=== PATIENT | female | born 1965 | race Caucasian/White ===

== ENCOUNTER 2017-02-18 20:02 | Inpatient (IN) | payer BC ==
[2017-02-18] MEDS: Ketorolac INJ* 30 MG/ML 1 ML VIAL IV PRN (22:49)
[2017-02-18] MEDS: NS 0.9% 1000 ML* 1,000 ML IV SCH (22:58)
[2017-02-18] MEDS: Piperacillin/Tazobactam VIAL*) 3.375 GM in NS 0.9% 100 ML* 100 ML IVPB SCH (23:04)
[2017-02-19] MEDS: HYDROmorphone INJ* 2 MG/ML CARPUJECT SYRINGE IV PRN ×5 (01:21→20:18)
[2017-02-19 04:57] LABS: Hematocrit 29 % (35-47); Hemoglobin 9.6 g/dl (12.0-16.0); Mean Corpuscular HGB Conc 33 g/dl (31-36); Mean Corpuscular Hemoglobin 27 pg (27-31); Mean Corpuscular Volume 83 fL (80-97); Mean Platelet Volume 7 um3 (7.4-10.4); Red Blood Count 3.49 10^6/ul (4.0-5.4); Red Cell Distribution Width 15 % (10.5-15); White Blood Count 11.3 10^3/ul (3.5-10.8)
[2017-02-19 05:22] LABS: BUN/Creatinine Ratio 11.4 (8-20); C Reactive Protein 234.77 mg/L (< 5.00); Calcium 8.4 mg/dL (8.6-10.3); EGFR African American 114.4 (>60); EGFR Non-African American 88.9 (>60); Potassium 3.5 mmol/L (3.5-5.0)
[2017-02-19] MEDS: Piperacillin/Tazobactam VIAL*) 3.375 GM in NS 0.9% 100 ML* 100 ML IVPB SCH ×3 (06:09→22:20)
[2017-02-19] MEDS: Ketorolac INJ* 30 MG/ML 1 ML VIAL IV PRN ×4 (06:15→23:27)
[2017-02-19] MEDS: NS 0.9% 1000 ML* 1,000 ML IV SCH ×2 (06:53→20:18)
[2017-02-19] MEDS ORDERED: NS 0.9% 1000 ML* 1,000 ML IV ONE (09:20)
[2017-02-19] MEDS ORDERED: fentaNYL* 50 MCG/ML 2 ML VIAL (100 MCG VIAL) ONE (14:57)
[2017-02-19] MEDS ORDERED: LORazepam TAB(*) 1 MG ONE (15:32)
[2017-02-19] MEDS: carBAMazepine TAB(*) 200 MG PO SCH (18:21)
[2017-02-19] MEDS ORDERED: Pantoprazole IV* 40 MG ONE (23:18)
[2017-02-19] MEDS ORDERED: Pantoprazole IV* 40 MG IV ONE (23:45)
--- NOTE | 2017-02-20 00:02 | HP ---
CC: Dr. Chery Sandoval * ADMISSION HISTORY AND PHYSICAL: DATE OF ADMISSION: 02/18/17 ATTENDING SURGEON: Dr. Selvin Betancourt * (DICTATED BY ANGELICA MARQUEZ) CHIEF COMPLAINT: Abdominal pain; appendicitis with abscess. HISTORY OF PRESENT ILLNESS: This is a 51-year-old female, who on Wednesday, , began to experience some generalized abdominal pain. Over the next day or so, the pain localized to the right lower quadrant where it has remained since. She had been seen in the ED and then had an ultrasound of apparently the right upper quadrant on 02/15/17. That study, which I do not have immediately available for review, apparently did show cholelithiasis without evidence of acute cholecystitis. She continued having pain in the right mid abdomen associated with anorexia, but no nausea or vomiting. She denies fever or chills. She was seen in the clinic by Dr. Manning for concern regarding possible gallbladder pain. His exam was concerning more for appendicitis and she was referred for lab work and CT scan of the abdomen and pelvis. Her lab work showed a white blood cell count of 10,500, hemoglobin of 10.9, there was a left shift. Chemistries were significant for potassium of 3.3 and normal liver function tests. CT scan of the abdomen and pelvis was notable for mild dependent atelectasis in the lung bases, cholelithiasis, but without pericholecystic fluid or gallbladder wall edema. There was noted periappendiceal fat stranding with an appendicolith. There was a 3.5-cm diameter loculated fluid collection with foci of air at the tip of the appendix. There was no free intraperitoneal air and no other free fluid or collections noted. There were multiple masses noted in the uterus consistent with fibroids (the patient was made aware). She was seen in the [facility] ER and given IV fluids, morphine, and Unasyn. She was then transferred to [facility]. At present, she is receiving IV fluids and Zosyn. She states that the pain continues in the right lower quadrant, though is manageable with the IV Dilaudid. She was also seen this morning with Dr. Betancourt. PAST MEDICAL HISTORY: Significant for trigeminal neuralgia on the right, obesity, anxiety, depression, and iron deficiency anemia. 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 Douglas. CURRENT MEDICATIONS: 1. Tegretol 200 mg four times a day. 2. Norgestrol with ethinyl estradiol once daily (for regulation of her periods) . 3. Buspirone 5 mg q.p.m. 4. Alprazolam 0.5 mg (the patient recalls the dosage 0.25 mg) b.i.d. DRUG ALLERGIES: None known. FAMILY HISTORY: Negative for anesthesia problems, bleeding, or clotting disorders. SOCIAL HISTORY: The patient is . She denies use of tobacco or alcohol or other recreational drugs. REVIEW OF SYSTEMS: General: As above per HPI. No additional recent acute illnesses. Cardiovascular: No history of hypertension, chest pain, palpitations, or heart murmur. Respiratory: No history of asthma, chronic cough, or shortness of breath. GI: As above per HPI. No additions. : No dysuria, hematuria, or urinary frequency. [employer]: I did not inquire. Endocrine: No diabetes or thyroid dysfunction. Neurological: Right trigeminal neuralgia. PHYSICAL EXAMINATION GENERAL: Well-nourished, obese female in no acute distress. She appears comfortable. VITAL SIGNS: Temperature 99.6, blood pressure 148/68, pulse 101, respirations 18, room air saturation 94%. HEENT: Pupils equal, round, reactive. EOMs intact. No conjunctival pallor or scleral icterus. Oropharynx: Mucous membranes slightly dry. No intraoral lesions. Teeth in good repair. NECK: No lymphadenopathy, thyromegaly, or masses. LUNGS: Clear to auscultation. No rales or wheezes. HEART: Regular rate and rhythm. No murmur noted. ABDOMEN: Bowel sounds present. Obese, soft, tenderness in the right lower quadrant, but without guarding, rebound, or referred tenderness. No palpable masses or organomegaly. BACK: No spinous process or CVA tenderness. GENITALIA: Not done. RECTAL: Not done. EXTREMITIES: No edema. NEUROLOGIC: Grossly intact. SKIN: Warm and dry. No suspicious rashes or lesions. DIAGNOSTIC STUDIES/LAB DATA: Of note, white blood cell count 11,300 with left shift, hemoglobin 9.6, hematocrit 29. Electrolytes: BUN and creatinine are normal. CRP is elevated at 235. CT scan as noted above. IMPRESSION: Appendicitis with abscess. PLAN: Dr. Betancourt discussed with her the plan, which includes percutaneous drainage of the abscess, IV fluids, and IV antibiotics. If she is not improving in a timely fashion, she will require operative intervention ( appendectomy), though at this point, the plan is to defer surgical intervention. ANGELICA MARQUEZ [id number]/[facility] #: [id number] MOUSTAPHA
[2017-02-20] MEDS: HYDROmorphone INJ* 2 MG/ML CARPUJECT SYRINGE IV PRN ×7 (03:54→23:46)
[2017-02-20] MEDS: NS 0.9% 1000 ML* 1,000 ML IV SCH ×3 (04:52→21:35)
[2017-02-20 05:13] LABS: Hematocrit 26 % (35-47); Hemoglobin 8.8 g/dl (12.0-16.0); Mean Corpuscular HGB Conc 33 g/dl (31-36); Mean Corpuscular Hemoglobin 28 pg (27-31); Mean Corpuscular Volume 84 fL (80-97); Mean Platelet Volume 7 um3 (7.4-10.4); Red Blood Count 3.13 10^6/ul (4.0-5.4); Red Cell Distribution Width 16 % (10.5-15); White Blood Count 10.9 10^3/ul (3.5-10.8)
[2017-02-20] MEDS: Piperacillin/Tazobactam VIAL*) 3.375 GM in NS 0.9% 100 ML* 100 ML IVPB SCH ×3 (06:32→22:24)
[2017-02-20] MEDS: Ketorolac INJ* 30 MG/ML 1 ML VIAL IV PRN ×2 (06:39→14:35)
[2017-02-20] MEDS: carBAMazepine TAB(*) 200 MG PO SCH ×4 (08:17→20:01)
--- NOTE | 2017-02-20 09:11 | RAD ---
CPT II Codes: 6100F INDICATION: Small right lower quadrant abscess secondary to appendiceal rupture. COMPARISON: CT abdomen pelvis February 18, 2017 PROCEDURE NOTE AND FINDINGS: The indication, alternatives therapies, benefits and risks of the procedure were explained to the patient and informed consent was obtained. The patient was brought to the CT suite and positioned in the supine position. . A time out was preformed with the technologist and nursing staff. The patient was prepped and draped in the usual sterile fashion. The patient was given intravenous fentanyl and local anesthesia with 1% lidocaine. Using CT guidance 18-gauge needle was inserted into the right lower quadrant collection. Aspiration yielded approximately 1 mL of malodorous, dark brown serous fluid. The sample was sent for laboratory analysis. The small abscess was deemed too small for drainage placement. The patient tolerated the procedure well without incident. The patient was transported back to her inpatient room in stable condition. IMPRESSION: Uncomplicated CT guided right lower quadrant microabscess aspiration as described in the body of the report.
[2017-02-20] MEDS ORDERED: busPIRone TAB* 10 MG PO PRN (09:59)
--- NOTE | 2017-02-20 10:05 | PN ---
Progress Note - Progress Note Date of Service: 02/20/17 SOAP: Subjective: Feels a little better this morning Slightly less pain in RLQ Had BM this morning Objective: TMAX 102.6 Temp Pulse Resp BP Pulse Ox 98.6 F 97 18 140/57 94 02/20/17 07:51 02/20/17 07:51 02/20/17 10:00 02/20/17 07:51 02/20/17 07:51 Intake & Output 02/18/17 02/19/17 02/20/17 02/21/17 06:59 06:59 06:59 06:59 Intake Total 0 2900 730 Output Total 800 1050 Balance -800 1850 730 Weight 190 lb Intake: IV Fluids 470 NS 470 IVPB 2200 NS 1980 ZOSYN 220 Oral 0 700 260 Output: Urine 800 1050 PEX: Comfortable Lungs are clear Abd is soft and slightly distended. Bowel sounds are present but hypoactive Tenderness in the RLQ with some guarding, no mass, no peritoneal irritation. Laboratory Last Values WBC 10.9 10^3/ul (3.5-10.8) H 02/20/17 04:45 RBC 3.13 10^6/ul (4.0-5.4) L 02/20/17 04:45 Hgb 8.8 g/dl (12.0-16.0) L 02/20/17 04:45 Hct 26 % (35-47) L 02/20/17 04:45 MCV 84 fL (80-97) 02/20/17 04:45 MCH 28 pg (27-31) 02/20/17 04:45 MCHC 33 g/dl (31-36) 02/20/17 04:45 RDW 16 % (10.5-15) H 02/20/17 04:45 Plt Count 239 10^3/ul (150-450) 02/20/17 04:45 MPV 7 um3 (7.4-10.4) L 02/20/17 04:45 Neut % (Auto) 83.8 % (38-83) H 02/20/17 04:45 Lymph % (Auto) 8.4 % (25-47) L 02/20/17 04:45 Yell % (Auto) 7.3 % (1-9) 02/20/17 04:45 Eos % (Auto) 0.2 % (0-6) 02/20/17 04:45 Baso % (Auto) 0.3 % (0-2) 02/20/17 04:45 Absolute Neuts (auto) 9.1 10^3/ul (1.5-7.7) H 02/20/17 04:45 Absolute Lymphs (auto) 0.9 10^3/ul (1.0-4.8) L 02/20/17 04:45 Absolute Monos (auto) 0.8 10^3/ul (0-0.8) 02/20/17 04:45 Absolute Eos (auto) 0 10^3/ul (0-0.6) 02/20/17 04:45 Absolute Basos (auto) 0 10^3/ul (0-0.2) 02/20/17 04:45 Absolute Nucleated RBC 0.01 10^3/ul 02/20/17 04:45 Nucleated RBC % 0 02/20/17 04:45 Sodium 135 mmol/L (133-145) 02/19/17 04:33 Potassium 3.5 mmol/L (3.5-5.0) 02/19/17 04:33 Chloride 102 mmol/L (101-111) 02/19/17 04:33 Carbon Dioxide 27 mmol/L (22-32) 02/19/17 04:33 Anion Gap 6 mmol/L (2-11) 02/19/17 04:33 BUN 8 mg/dL (6-24) 02/19/17 04:33 Creatinine 0.70 mg/dL (0.51-0.95) 02/19/17 04:33 Est GFR ( Amer) 114.4 (>60) 02/19/17 04:33 Est GFR (Non-Af Amer) 88.9 (>60) 02/19/17 04:33 BUN/Creatinine Ratio 11.4 (8-20) 02/19/17 04:33 Glucose 101 mg/dL (70-100) H 02/19/17 04:33 Calcium 8.4 mg/dL (8.6-10.3) L 02/19/17 04:33 C-Reactive Protein 278.45 mg/L (< 5.00) H 02/20/17 04:41 Assessment: Appendicitis--delayed presentation with perforation and abscess/phlegmon s/p aspiration of collection Plan: Continue IV Zosyn-no surgical intervention at this time Full liquids Increase activity Follow clinically-if persistent fever, WBC, pain may need repeat CT scan in next 48-72 hours to follow abscess--want to avoid surgical intervention at this time, hopefully will respond to antibiotics with improvement and subsequent interval appendectomy. All discussed with patient this morning.
[2017-02-20] MEDS: Venlafaxine EXT RELEASE CAP* 75 MG PO SCH (11:53)
[2017-02-20] MEDS: ALPRAZolam TAB* 0.5 MG PO SCH ×2 (11:53→20:01)
[2017-02-20] MEDS: Pantoprazole IV* 40 MG IV SCH (20:01)
[2017-02-20] MEDS ORDERED: Ibuprofen TAB* 400 MG ONE (23:46)
[2017-02-21] MEDS: HYDROmorphone INJ* 2 MG/ML CARPUJECT SYRINGE IV PRN ×7 (03:26→19:20)
[2017-02-21] MEDS: Piperacillin/Tazobactam VIAL*) 3.375 GM in NS 0.9% 100 ML* 100 ML IVPB SCH ×3 (05:59→21:59)
[2017-02-21] MEDS: ALPRAZolam TAB* 0.5 MG PO SCH ×2 (08:43→20:09)
[2017-02-21] MEDS: carBAMazepine TAB(*) 200 MG PO SCH ×4 (08:43→20:10)
[2017-02-21] MEDS: Venlafaxine EXT RELEASE CAP* 75 MG PO SCH (08:44)
--- NOTE | 2017-02-21 09:58 | PN ---
Progress Note - Progress Note Date of Service: 02/21/17 SOAP: Subjective: New cough, non productive started 2 nights ago. Pain in abdomen is unchanged. She denies N/V and is voiding well. +flatus. Objective: Vital Signs Temp 98.7 F 02/21/17 02:56 Pulse 91 02/21/17 02:56 Resp 17 02/21/17 08:43 BP 141/68 02/21/17 02:56 Pulse Ox 96 02/21/17 02:56 Gen: moderately ill appearing. Lungs: bilateral coarse BS. Abd: obese; soft; tender in RLQ with Rovsing sx. Intake & Output 02/20/17 02/21/17 02/21/17 18:59 06:59 18:59 Intake Total 2115 100 Output Total 475 150 700 Balance 1640 -50 -700 Intake: IV Fluids 470 NS 470 Oral 1645 100 Output: Urine 475 150 700 Other: Estimated Void Medium # Bowel Movements 0 1 Estimated Stool Amount Medium Assessment: Missed appendicitis with abscess. S/p IR aspiration unsuccessful drain placement. Slight improvement with IV abx. New cough, fever. Possible PNA/flu. Plan: Will check CXR and labs. Hospitalist consult for pulmonary issue. Continue IV abx for appendicitis but may need repeat CT or surgery if not improving further in next day.
[2017-02-21 11:06] LABS: Hematocrit 26 % (35-47); Hemoglobin 8.7 g/dl (12.0-16.0); Mean Corpuscular HGB Conc 34 g/dl (31-36); Mean Corpuscular Hemoglobin 28 pg (27-31); Mean Corpuscular Volume 83 fL (80-97); Mean Platelet Volume 7 um3 (7.4-10.4); Red Blood Count 3.11 10^6/ul (4.0-5.4); Red Cell Distribution Width 15 % (10.5-15); White Blood Count 10.7 10^3/ul (3.5-10.8)
--- NOTE | 2017-02-21 11:09 | RAD ---
INDICATION: Cough and fever in a woman with an appendiceal abscess COMPARISON: None TECHNIQUE: PA and lateral views of the chest were obtained. FINDINGS: The heart and mediastinum are normal in size and contour. On the AP view of the chest there is mild density overlying the bilateral lung bases. On the lateral view of the chest x-ray there is obscuration of the costophrenic angle and posterior diaphragm. Visualized bones are normal for the patient's age. There is no radiographic evidence of free air beneath the diaphragm IMPRESSION: IN THIS CLINICAL SETTING CHEST X-RAY FINDINGS ARE CONSISTENT WITH BIBASILAR ATELECTASIS WITH A SMALL PLEURAL EFFUSION. IT IS UNCLEAR ON THE AP VIEW WHETHER THE PLEURAL EFFUSION IS RIGHT, LEFT OR BILATERAL.
[2017-02-21 11:30] LABS: BUN/Creatinine Ratio 4.6 (8-20); C Reactive Protein 343.58 mg/L (< 5.00); EGFR African American 124.6 (>60); EGFR Non-African American 96.9 (>60)
[2017-02-21] MEDS: NS 0.9% 1000 ML* 1,000 ML IV SCH ×2 (14:27→18:17)
[2017-02-21] MEDS ORDERED: Albuterol 2.5 MG/3 ML NEB.SOL* (0.083%) INH PRN (15:19)
[2017-02-21] MEDS ORDERED: KCL 20 MEQ/100 ML IVPREMIX* 20 MEQ/100 ML BAG IV ONE (15:20)
[2017-02-21] MEDS ORDERED: Potassium Chlor TAB* 20 MEQ TAB.ER PO ONE (15:21)
[2017-02-21] MEDS ORDERED: NS 0.9% 1000 ML* 1,000 ML IV SCH (15:21)
[2017-02-21] MEDS: Ibuprofen TAB* 400 MG PO PRN (20:09)
[2017-02-21] MEDS: Pantoprazole IV* 40 MG IV SCH (20:09)
--- NOTE | 2017-02-21 22:09 | CONS ---
CONSULTATION REPORT: DATE OF CONSULT: 02/21/17 PROVIDER: Cedric Stevens NP. ATTENDING PHYSICIAN: Dr. Michelle (report dictated by Cedric Stevens NP). REFERRING PROVIDER: Dr. Chin, surgical team. CONSULTATION REASON: Shortness of breath, cough, fever. HISTORY OF PRESENT ILLNESS: Ms. Win is a 51-year-old female with past medical history of obesity, anxiety, depression, iron deficiency anemia and trigeminal neuralgia who was admitted on 02/18/17 for abdominal pain, found to have appendicitis with abscess who is currently being treated with IV antibiotics by the surgical team. She is status post IR aspiration with unsuccessful drain placement and is currently on Zosyn for IV antibiotics. Today, Hospital Medicine was asked to evaluate the patient for fevers last evening, development of cough and shortness of breath. The patient underwent a chest x-ray, which is showing "consistent with bibasilar atelectasis with a small pleural effusion." Her last fever was last evening of 101. Her initial leukocytosis on admission was 11.3 and today it is down to 10.7. She has had no further fevers since last evening. The patient was seen and evaluated at the bedside, found to be alert and oriented x3, appearing to be in mild pain, but resting comfortably. She does report that she has been breathing very shallow and has developed some shortness of breath overnight and reports she feels "wheezy." She reports it is painful to get a deep breath due to pain in her abdomen. She denies any further fever or chills today. She is noted to be on 2 L of oxygen and her pulse oximetry was taken at the bedside, which is 91% and she was bumped up to 4 L. Her respirations seem easy at this time. She is noted to have some bilateral wheezing noted with some bibasilar crackles noted and her respirations are easy at this time. The patient denies chest pain. It is noted she has been on fluids since her admission. She denies feeling puffy in her extremities. Denies any cardiac or lung history. The patient denies orthopnea, but she reports a bit difficult to lie flat due to her abdominal pain. Currently, the patient is feeling a little better. PAST MEDICAL HISTORY: As stated in the HPI. PAST SURGICAL HISTORY: [place] tooth extraction, benign right parotid gland tumor. CURRENT MEDICATIONS: 1. Xanax 0.5 mg p.o. b.i.d. 2. BuSpar 10 mg p.o. b.i.d. p.r.n. 3. Tegretol 200 mg p.o. 4 times a day. 4. Dilaudid 0.5 mg IV q.1 hour p.r.n. 5. Motrin 400 mg p.o. q.6 hours p.r.n. 6. Zofran 4 mg IV q.4 hours p.r.n. 7. Protonix 40 mg IV q.24 hours. 8. Zosyn 3.375 g q.8 hours IV. 9. Normal saline 125 mL an hour. 10. Effexor 75 mg p.o. q.a.m. ALLERGIES: No known allergies. FAMILY HISTORY: Reviewed and noncontributory. SOCIAL HISTORY: The patient is and lives at home with her . She denies history of tobacco or alcohol use. No recreational drug use. REVIEW OF SYSTEMS: A 14-point review of systems was performed. All the pertinent positives and negatives are mentioned in the history of present illness. Otherwise, negative. PHYSICAL EXAMINATION: Vital Signs: Temperature 97.6, heart rate 98, respirations 18. Pulse oximetry 92% on 2 L; on 4 L she is 95%. Blood pressure 143/72. General Appearance: A 51-year-old female alert and oriented x3, appears mildly ill, in mild pain and distress, but she appears comfortable at this time. She is appropriate to examination, very pleasant, cooperative. HEENT: Head is normocephalic, atraumatic. Pupils are equal and reactive to light. Oropharynx is clear. Moist mucous membranes. Neck: Supple. Cardiac: S1 and S2. Regular rate and rhythm. No murmur, rub, or gallop appreciated. No lower extremity edema noted. No JVD noted. Lungs: No accessory muscle use. Some small crackles noted in bibasilar area, otherwise good aeration. Abdomen: Obese, soft, tenderness with mild guarding to the right lower quadrant. Extremities: No clubbing, cyanosis, or edema. Warm and well perfused. Neuro: Alert and oriented. No focal deficits noted. ASSESSMENT AND PLAN: Ms. Win is a 51-year-old female who presented to the emergency department on 02/18/17 with abdominal pain, found to have appendicitis with abscess, currently being treated with IV antibiotics by the surgical team. Hospital Medicine was asked to consult regarding redevelopment of her fever last evening and complaint of cough and shortness of breath. 1. Cough, shortness of breath, hypoxia. As stated above, her chest x-ray is showing bibasilar atelectasis with possible pleural effusion. It is possible she has a pneumonia and she is being covered with broad spectrum antibiotics. However, this could very well likely just be atelectasis. She does report she is shallow breathing due to her abdominal pain. For the last couple of hours, she has been using the incentive spirometer and she was recommended to do this at least 10 times an hour as well as frequent ambulation. She reports she has been ambulating a little bit; however, today has mostly been staying in bed. She was encouraged to be more active if possible. It is noted she now is hypoxic and is requiring 4 L to keep her O2 sat at 94%. Her breathing appears easy at this time. We will continue to have nurses monitor closely. Encouraged her to mobilize herself. She did have blood cultures on 02/20/17, which are still pending at this time. I plan for albuterol nebulizers p.r.n. due to slight wheezing. It is noted that her CRP is 343; however, she presented with a CRP of 234, most likely this is secondary to her abscess. 2. Appendicitis with abscess. Disposition per surgical team. She is currently receiving Zosyn and is being monitored closely. If she has any changes, she will be taken to the OR. Pain management. Bowel regimen. 3. Hypokalemia. We will replace the patient's potassium. Recheck BMP in the morning as well as the magnesium level. 4. Depression and anxiety. Continue home medications. 5. DVT prophylaxis. SCDs. 6. Code status, full code. Her is her healthcare proxy. TIME SPENT: Approximately 60 minutes was spent on this consultation. Hospital Medicine will continue to follow along. Thank you very much for asking us to consult. CEDRIC STEVENS, LILLIE [id number]/[facility] #: [id number] MOUSTAPHA
[2017-02-22] MEDS: HYDROmorphone INJ* 2 MG/ML CARPUJECT SYRINGE IV PRN ×5 (01:41→19:50)
[2017-02-22] MEDS: Ibuprofen TAB* 400 MG PO PRN ×2 (05:36→11:32)
[2017-02-22] MEDS: Piperacillin/Tazobactam VIAL*) 3.375 GM in NS 0.9% 100 ML* 100 ML IVPB SCH ×3 (05:37→23:45)
[2017-02-22 08:29] LABS: Hematocrit 25 % (35-47); Hemoglobin 8.1 g/dl (12.0-16.0); Mean Corpuscular HGB Conc 33 g/dl (31-36); Mean Corpuscular Hemoglobin 28 pg (27-31); Mean Corpuscular Volume 84 fL (80-97); Mean Platelet Volume 8 um3 (7.4-10.4); Red Blood Count 2.95 10^6/ul (4.0-5.4); Red Cell Distribution Width 15 % (10.5-15); White Blood Count 9.6 10^3/ul (3.5-10.8)
[2017-02-22 08:47] LABS: BUN/Creatinine Ratio 3.7 (8-20); C Reactive Protein 323.77 mg/L (< 5.00); Calcium 8.7 mg/dL (8.6-10.3); EGFR African American 154.3 (>60); Magnesium 1.8 mg/dL (1.9-2.7); Potassium 3.1 mmol/L (3.5-5.0)
[2017-02-22] MEDS: ALPRAZolam TAB* 0.5 MG PO SCH ×2 (09:07→22:13)
[2017-02-22] MEDS: carBAMazepine TAB(*) 200 MG PO SCH ×2 (09:07→22:13)
[2017-02-22] MEDS: Venlafaxine EXT RELEASE CAP* 75 MG PO SCH (09:07)
[2017-02-22] MEDS ORDERED: Magnesium Sulfate 2 GM IV* 2 GM/50 ML BAG IVPB ONE (09:21)
[2017-02-22] MEDS ORDERED: Potassium Chlor TAB* 20 MEQ TAB.ER PO ONE (09:30)
[2017-02-22] MEDS ORDERED: KCL 20 MEQ/100 ML IVPREMIX* 20 MEQ/100 ML BAG IV ONE (09:30)
[2017-02-22] MEDS ORDERED: carBAMazepine TAB(*) 200 MG PO ONE (10:00)
[2017-02-22] MEDS ORDERED: Potassium Chloride LIQUID* 20 MEQ PACKET PO ONE (10:00)
[2017-02-22] MEDS: NS 0.9% 1000 ML* 1,000 ML IV SCH (11:07)
--- NOTE | 2017-02-22 12:11 | PN ---
Subjective Date of Service: 02/22/17 Interval History: Patient seen and examined at bedside. Denies fever, chills, chest discomfort, N/ V/D. Pt states that pain is controlled. Reports continued shortness of breath with rest and ambulation, feels it is improved today compared to yesterday. Also reports intermittent cough and wheezing, she has been coughing and deep breathing and using IS. Pt has been weaned off O2. Tolerating a full liquid diet. Family History: Unchanged from Admission Social History: Unchanged from Admission Past Medical History: Unchanged from Admission Objective Active Medications: Albuterol (Ventolin 2.5 Mg/3 Ml Neb.[place]*) 2.5 mg INH Q4H PRN Reason: SOB/ WHEEZING Alprazolam (Xanax Tab*) 0.5 mg PO BID STANISLAV Buspirone HCl (Buspar Tab*) 10 mg PO BID PRN Reason: ANXIETY Carbamazepine (Tegretol Tab(*)) 400 mg PO BID STANISLAV Hydromorphone HCl (Dilaudid Inj*) 0.5 mg IV Q1H PRN Reason: Pain - severe Piperacillin Sod/Tazobactam (Sod 3.375 gm/ Sodium Chloride) 100 mls @ 25 mls/ hr IVPB Q8H [facility] Sodium Chloride (Ns 0.9% 1000 Ml*) 1,000 mls @ 0 mls/hr IV PER RATE STANISLAV Ibuprofen (Motrin Tab*) 400 mg PO Q6H PRN Reason: PAIN/TEMPERATURE Ondansetron HCl (Zofran Inj*) 4 mg IV Q4H PRN Reason: NAUSEA/VOMITING Pantoprazole Sodium (Protonix Iv*) 40 mg IV Q24H STANISLAV Venlafaxine HCl (Effexor Xr Cap*) 75 mg PO QAM [facility] Vital Signs 02/21/17 02/21/17 02/21/17 12:58 13:55 15:25 Temperature 99.8 F Pulse Rate 102 Respiratory 16 19 20 Rate Blood Pressure 164/73 (mmHg) O2 Sat by Pulse 96 Oximetry 02/21/17 02/21/17 02/21/17 19:40 20:09 20:16 Temperature 99.2 F Pulse Rate 101 Respiratory 18 15 15 Rate Blood Pressure 137/66 (mmHg) O2 Sat by Pulse 97 Oximetry 02/21/17 02/21/17 02/22/17 21:43 23:28 01:41 Temperature 97.7 F Pulse Rate 85 Respiratory 16 16 16 Rate Blood Pressure 153/83 (mmHg) O2 Sat by Pulse 99 Oximetry 02/22/17 02/22/17 02/22/17 02:49 03:23 05:36 Temperature 98.4 F Pulse Rate 88 Respiratory 17 16 16 Rate Blood Pressure 145/76 (mmHg) O2 Sat by Pulse 99 Oximetry 02/22/17 02/22/17 02/22/17 07:32 07:57 08:22 Temperature 97.9 F Pulse Rate 85 Respiratory 18 16 16 Rate Blood Pressure 129/69 (mmHg) O2 Sat by Pulse 100 93 Oximetry 02/22/17 11:44 Temperature 98.0 F Pulse Rate 92 Respiratory 18 Rate Blood Pressure 133/73 (mmHg) O2 Sat by Pulse 97 Oximetry Oxygen Devices in Use Now: None Appearance: NAD, laying in bed Ears/Nose/Mouth/Throat: Mucous Membranes Moist Respiratory: Symmetrical Chest Expansion and Respiratory Effort, Clear to Auscultation Cardiovascular: NL Sounds; No Murmurs; No JVD, RRR Abdominal: NL Sounds; No Tenderness; No Distention Extremities: No Edema Skin: No Rash or Ulcers Neurological: Alert and Oriented x 3, NL Muscle Strength and Tone Lines/Tubes/Other Access: Clean, Dry and Intact Peripheral IV - site benign Nutrition: Taking PO's Result Diagrams: 02/22/17 07:16 02/22/17 07:16 Microbiology and Other Data: Microbiology 02/19/17 16:20 Gram Stain - Final Body Fluid - Abscess Body Fluid Culture - Preliminary Escherichia Coli Bacteroides Fragilis Enterococcus Avium Skin and Soft Tissue MRSA/MSSA (PCR - Final Mrsa Negative S.aureus Negative 02/21/17 00:02 Aerobic Blood Culture - Preliminary Blood Venous No Growth Day 1 Anaerobic Blood Culture - Preliminary No Growth Day 1 02/20/17 23:20 Aerobic Blood Culture - Preliminary Blood Venous No Growth Day 1 Anaerobic Blood Culture - Preliminary No Growth Day 1 Assess/Plan/Problems-Billing Assessment: Ms. Win is a 51 yo female with PMH significant for trigeminal neuralgia, anxiety, depression, obesity and ANDREZ who presented to the emergency room with abdominal pain and was found to have appendicitis with abscess, currently being treated with IV ABX by the surgical team. Hospitalists where asked to consult regarding redevelopment of fevers, with shortness of breath and cough. - Patient Problems (1) Appendicitis Code(s): K37 - UNSPECIFIED APPENDICITIS SNOMED Code(s): 55020373 Comment: - S/P CT guided abscess drainage 02/19 - Management per surgical team - Continue Zosyn, pain management and bowel regimen (2) Atelectasis, bilateral Code(s): J98.11 - ATELECTASIS SNOMED Code(s): 62416420 Comment: - with cough - Shortness of breath improved and hypoxia resolved - Chest xray shows bilateral atelectasis with possible pleural effusion - Continue IS and frequent ambulation - Continue albuterol nebulizers PRN for wheezing (3) Electrolyte abnormality Code(s): E87.8 - OTH DISORDERS OF ELECTROLYTE AND FLUID BALANCE, NEC SNOMED Code(s): 038495048 Comment: - Hypokalemia - Give replacement today and recheck labs in the AM - Hypomagnesemia - Give replacement today and recheck labs in the AM (4) Anxiety and depression Code(s): F41.8 - OTHER SPECIFIED ANXIETY DISORDERS SNOMED Code(s): 403524240 Comment: - Continue Buspar, Effexor, and Xanax PRN (5) Trigeminal neuralgia Code(s): G50.0 - TRIGEMINAL NEURALGIA SNOMED Code(s): 99089815 Comment: - Continue Tegretol (6) DVT prophylaxis Code(s): TCX9340 - SNOMED Code(s): 706564549 Comment: - SCDs (7) Full code status Code(s): Z78.9 - OTHER SPECIFIED HEALTH STATUS SNOMED Code(s): 818382586 Status and Disposition: Inpatient. Disposition per general surgery. Thank you for this consultation.
[2017-02-22] MEDS ORDERED: Acetaminophen TAB* 325 MG PO PRN (15:51)
[2017-02-22] MEDS ORDERED: HYDROcodone/ACETAMIN 5-325 MG* 1 TAB PO PRN (15:52)
--- NOTE | 2017-02-22 15:54 | PN ---
Progress Note - Progress Note Date of Service: 02/22/17 Note: Surgery Progress: (completion of earlier entry; patient seen ~ 1700) S: HD/Zosyn Day #4. Feeling better. Still some pain (using Dilaudid). Still some RAVI. Abdoulaye ful liqs. Not much appetite for more yet. Had BM this a.m.; passing flatus as well. Ambulating. Hospitalist note appreciated. O: Vital Signs - 8 hr 02/22/17 02/22/17 02/22/17 07:57 08:22 09:07 Temperature 97.9 F Pulse Rate 85 Respiratory 16 16 16 Rate Blood Pressure 129/69 (mmHg) O2 Sat by Pulse 100 93 Oximetry 02/22/17 02/22/17 02/22/17 09:48 11:33 11:44 Temperature 98.0 F Pulse Rate 92 Respiratory 18 18 18 Rate Blood Pressure 133/73 (mmHg) O2 Sat by Pulse 97 Oximetry 02/22/17 15:25 Temperature 98.9 F Pulse Rate 98 Respiratory 18 Rate Blood Pressure 145/77 (mmHg) O2 Sat by Pulse 91 Oximetry Intake and Output Last 24 Hours 02/20/17 02/21/17 02/22/17 02/23/17 06:59 06:59 06:59 06:59 Intake Total 2900 2215 2184 625 Output Total 2136 447 1888 200 Balance 1850 1590 -641 425 Intake: IV Fluids 470 1094 265 NS 470 984 ZOSYN 110 105 magnesium 55 potassium 105 IVPB 2200 NS 1980 ZOSYN 220 Oral 700 1745 1090 360 Output: Urine 6215 980 0504 200 Other: Estimated Void Medium # Bowel Movements 0 1 Estimated Stool Amount Medium PE: Gen: NAD; appears comfortable, sitting up in chair Heart: reg Lungs: upper styles clear; moderate bibasilar crackles Abd: mild distension; +BS; soft; min tenderness to palp; no peritoneal signs Labs: Laboratory Tests 02/19/17 02/21/17 02/22/17 04:33 10:58 07:16 WBC 9.6 Hgb 8.1 L Neut % (Auto) 85.3 H Potassium 3.0 L Magnesium C-Reactive Protein 234.77 H 343.58 H 02/22/17 07:16 WBC Hgb Neut % (Auto) Potassium 3.1 L Magnesium 1.8 L C-Reactive Protein 323.77 H C&S (aspirate from abscess): RUN DATE: 02/22/17 [facility] LAB LIVE PAGE 2 1. ESCHERICHIA COLI (continued) M.I.C. RX Levofloxacin <=0.12 S Meropenem <=0.25 S Nitrofurantoin <=16 S Tetracycline <=1 S Pipercillin/Tazobactam <=4 S Trimethoprim/Sulfamethoxazole <=20 S Amoxicillin/Clavulanic Acid <=2 S Aztreonam <=1 S 3. ENTEROCOCCUS AVIUM M.I.C. RX Ampicillin <=2 S Penicillin 0.25 S Ciprofloxacin <=0.5 S Erythromycin 0.5 S Gentamicin High Level S Levofloxacin 2 S Nitrofurantoin 128 R * Quinupristin/Dalfopristin 1 S * Streptomycin High Level S Tetracycline >=16 R Tigecycline <=0.12 S Vancomycin <=0.5 S * Ampicillin/Sulbactam-Deduced S Also, B fragilis (no sens) A: appendicitis w/ abscess, improving clinically Atelectasis w/ poss pleural effusion, improving Hypokalemia and hypomagnesemia P: cont IV abx K+ and Mg+ ordered by hosp w/ repeat 02/23 cont IS, ambulation adv diet when desired consider transition to po abx and d/c home soon; timing of repeat CT abd/ pelvis; will d/w Dr. Betancourt in a.m.
[2017-02-22] MEDS: Ondansetron INJ* 2 MG/ML VIAL IV PRN (18:01)
[2017-02-22] MEDS: HYDROcodone/ACETAMIN 5-325 MG* 1 TAB PO PRN (19:23)
[2017-02-22] MEDS: Pantoprazole IV* 40 MG IV SCH (22:14)
[2017-02-23] MEDS: Ondansetron INJ* 2 MG/ML VIAL IV PRN ×3 (02:40→17:33)
[2017-02-23] MEDS: HYDROmorphone INJ* 2 MG/ML CARPUJECT SYRINGE IV PRN ×5 (02:50→17:35)
[2017-02-23 04:59] LABS: Hematocrit 24 % (35-47); Hemoglobin 8.1 g/dl (12.0-16.0); Mean Corpuscular HGB Conc 34 g/dl (31-36); Mean Corpuscular Hemoglobin 28 pg (27-31); Mean Corpuscular Volume 82 fL (80-97); Mean Platelet Volume 7 um3 (7.4-10.4); Red Blood Count 2.94 10^6/ul (4.0-5.4); Red Cell Distribution Width 15 % (10.5-15); White Blood Count 11.1 10^3/ul (3.5-10.8)
[2017-02-23 05:11] LABS: BUN/Creatinine Ratio 4.9 (8-20); Calcium 8.1 mg/dL (8.6-10.3); EGFR African American 134.1 (>60); EGFR Non-African American 104.2 (>60); Potassium 3.3 mmol/L (3.5-5.0)
[2017-02-23] MEDS: Piperacillin/Tazobactam VIAL*) 3.375 GM in NS 0.9% 100 ML* 100 ML IVPB SCH ×3 (05:59→22:31)
[2017-02-23] MEDS: NS 0.9% 1000 ML* 1,000 ML IV SCH (07:17)
--- NOTE | 2017-02-23 08:22 | PN ---
Subjective Date of Service: 02/23/17 Interval History: Patient seen and examined at bedside. Denies chills, chest discomfort, V/D. Pt states that she is passing gas and small loose stools. Pt reports fever overnight, continued shortness of breath at rest and with exertion, right lower abd pain, bloating. Pt is on week 2 of her menses, she reports heavy menses. Pt is aware of Dr. Fierro and willl consider a consultation outpatient. Pt states that she is coughing and deep breathing and using her IS. Family History: Unchanged from Admission Social History: Unchanged from Admission Past Medical History: Unchanged from Admission Objective Active Medications: Acetaminophen (Tylenol Tab*) 650 mg PO Q4H PRN Reason: mild pain or fever Hydrocodone Bitart/Acetaminophen (Elroy 5-325 Tab*) 1 tab PO Q4H PRN Reason: PAIN - MILD TO MODERATE Hydrocodone Bitart/Acetaminophen (Elroy 5-325 Tab*) 2 tab PO Q4H PRN Reason: PAIN - MODERATE TO SEVERE Albuterol (Ventolin 2.5 Mg/3 Ml Neb.[place]*) 2.5 mg INH Q4H PRN Reason: SOB/ WHEEZING Alprazolam (Xanax Tab*) 0.5 mg PO BID STANISLAV Buspirone HCl (Buspar Tab*) 10 mg PO BID PRN Reason: ANXIETY Carbamazepine (Tegretol Tab(*)) 400 mg PO BID STANISLAV Hydromorphone HCl (Dilaudid Inj*) 0.5 mg IV Q1H PRN Reason: Pain - severe Piperacillin Sod/Tazobactam (Sod 3.375 gm/ Sodium Chloride) 100 mls @ 25 mls/ hr IVPB Q8H STANISLAV Sodium Chloride (Ns 0.9% 1000 Ml*) 1,000 mls @ 0 mls/hr IV PER RATE [facility] Reason : KVO Ibuprofen (Motrin Tab*) 400 mg PO Q6H PRN Reason: PAIN/TEMPERATURE Ondansetron HCl (Zofran Inj*) 4 mg IV Q4H PRN Reason: NAUSEA/VOMITING Pantoprazole Sodium (Protonix Iv*) 40 mg IV Q24H STANISLAV Venlafaxine HCl (Effexor Xr Cap*) 75 mg PO QAM [facility] Vital Signs 02/22/17 02/22/17 02/22/17 08:22 09:07 09:48 Temperature Pulse Rate Respiratory 16 16 18 Rate Blood Pressure (mmHg) O2 Sat by Pulse 93 Oximetry 02/22/17 02/22/17 02/22/17 11:33 11:44 15:25 Temperature 98.0 F 98.9 F Pulse Rate 92 98 Respiratory 18 18 18 Rate Blood Pressure 133/73 145/77 (mmHg) O2 Sat by Pulse 97 91 Oximetry 02/22/17 02/22/17 02/22/17 15:55 17:40 19:18 Temperature 101.1 F Pulse Rate 108 Respiratory 18 16 20 Rate Blood Pressure 151/81 (mmHg) O2 Sat by Pulse 91 Oximetry 02/22/17 02/22/17 02/22/17 20:04 21:34 22:13 Temperature 100.7 F 98.4 F Pulse Rate 98 93 Respiratory 18 16 18 Rate Blood Pressure 157/83 155/83 (mmHg) O2 Sat by Pulse 92 95 Oximetry 02/22/17 02/22/17 02/23/17 23:31 23:49 00:09 Temperature 99.2 F Pulse Rate 95 Respiratory 17 16 16 Rate Blood Pressure 139/65 (mmHg) O2 Sat by Pulse 90 Oximetry 02/23/17 02/23/17 02/23/17 01:33 02:50 03:42 Temperature Pulse Rate 98 98 Respiratory 18 20 17 Rate Blood Pressure 147/83 (mmHg) O2 Sat by Pulse 92 93 Oximetry 02/23/17 02/23/17 02/23/17 03:51 05:17 07:18 Temperature 99.2 F Pulse Rate 94 Respiratory 16 20 16 Rate Blood Pressure 144/73 (mmHg) O2 Sat by Pulse 96 Oximetry Oxygen Devices in Use Now: Nasal Cannula - 2L Appearance: NAD, sitting up in a chair Ears/Nose/Mouth/Throat: Mucous Membranes Moist Respiratory: Symmetrical Chest Expansion and Respiratory Effort, Clear to Auscultation Cardiovascular: NL Sounds; No Murmurs; No JVD, RRR Abdominal: NL Sounds; No Tenderness; No Distention Extremities: No Edema Skin: No Rash or Ulcers Neurological: Alert and Oriented x 3, NL Muscle Strength and Tone Lines/Tubes/Other Access: Clean, Dry and Intact Peripheral IV - site benign Nutrition: Taking PO's Result Diagrams: 02/23/17 04:38 02/23/17 04:37 Microbiology and Other Data: Microbiology 11/17/17 16:20 Gram Stain - Final Body Fluid - Abscess Body Fluid Culture - Preliminary Escherichia Coli Bacteroides Fragilis Enterococcus Avium Skin and Soft Tissue MRSA/MSSA (PCR - Final Mrsa Negative S.aureus Negative 02/21/17 00:02 Aerobic Blood Culture - Preliminary Blood Venous No Growth Day 1 Anaerobic Blood Culture - Preliminary No Growth Day 1 02/20/17 23:20 Aerobic Blood Culture - Preliminary Blood Venous No Growth Day 1 Anaerobic Blood Culture - Preliminary No Growth Day 1 Assess/Plan/Problems-Billing Assessment: Ms. Win is a 51 yo female with PMH significant for trigeminal neuralgia, anxiety, depression, obesity and ANDREZ who presented to the emergency room with abdominal pain and was found to have appendicitis with abscess, currently being treated with IV ABX by the surgical team. Hospitalists where asked to consult regarding redevelopment of fevers, with shortness of breath and cough. - Patient Problems (1) Appendicitis Code(s): K37 - UNSPECIFIED APPENDICITIS SNOMED Code(s): 37891955 Comment: - S/P CT guided abscess drainage 02/19 - Management per surgical team - Will check CT Chest/ABD/Pelvis - Continue Zosyn, pain management and bowel regimen (2) Atelectasis, bilateral Code(s): J98.11 - ATELECTASIS SNOMED Code(s): 71933527 Comment: - with cough - Shortness of breath and hypoxia improving - Chest xray shows bilateral atelectasis with possible pleural effusion - Continue IS and frequent ambulation - Continue albuterol nebulizers PRN for wheezing (3) Electrolyte abnormality Code(s): E87.8 - OTH DISORDERS OF ELECTROLYTE AND FLUID BALANCE, NEC SNOMED Code(s): 852872159 Comment: - Hypokalemia - Give replacement today and recheck labs in the AM - Hypomagnesemia - Resolved (4) Anemia Code(s): D64.9 - ANEMIA, UNSPECIFIED SNOMED Code(s): 487888604 Comment: - Suspect chronic, secondary to acute blood loss d/t menorrhagia - Pt has heavy menses and known fibroids (5) Anxiety and depression Code(s): F41.8 - OTHER SPECIFIED ANXIETY DISORDERS SNOMED Code(s): 749300875 Comment: - Continue Buspar, Effexor, and Xanax PRN (6) Trigeminal neuralgia Code(s): G50.0 - TRIGEMINAL NEURALGIA SNOMED Code(s): 45571125 Comment: - Continue Tegretol (7) DVT prophylaxis Code(s): UTM8883 - SNOMED Code(s): 615880181 Comment: - SCDs (8) Full code status Code(s): Z78.9 - OTHER SPECIFIED HEALTH STATUS SNOMED Code(s): 680740359 Status and Disposition: Inpatient. Disposition per general surgery. Thank you for this consultation.
[2017-02-23] MEDS: Venlafaxine EXT RELEASE CAP* 75 MG PO SCH ×3 (10:09→13:35)
[2017-02-23] MEDS: ALPRAZolam TAB* 0.5 MG PO SCH ×2 (10:09→22:54)
[2017-02-23] MEDS: carBAMazepine TAB(*) 200 MG PO SCH ×2 (10:09→22:58)
[2017-02-23] MEDS: KCL 20 MEQ/100 ML IVPREMIX* 20 MEQ/100 ML BAG IV SCH ×2 (10:33→13:26)
[2017-02-23] MEDS ORDERED: Iohexol 300* (CONTRAST) 10 ML SDV IV ONE (12:26)
--- NOTE | 2017-02-23 13:57 | RAD ---
HISTORY: Pneumonia, follow-up appendiceal abscess COMPARISONS: February 19, 2017, February 18, 2017, chest x-ray dated March 23, 2017 TECHNIQUE: Multiple contiguous axial CT scans were obtained of the chest, abdomen, and pelvis after the administration of intravenous contrast. Coronal and sagittal multiplanar reformations are submitted for review.. Oral contrast was administered. Delayed images were obtained through the abdomen and pelvis. FINDINGS: CHEST NECK AND THYROID: The lower neck and thyroid are unremarkable. CHEST WALL: There is no lower cervical, axillary, or supraclavicular lymphadenopathy by size criteria. HEART AND PERICARDIUM: The heart is unremarkable. AORTA AND PULMONARY VASCULATURE: The aorta and pulmonary vasculature are normal. MEDIASTINUM: There is no mediastinal lymphadenopathy by size criteria. DOUGLAS: There is no hilar lymphadenopathy by size criteria. AIRWAY AND ESOPHAGUS: The airway is unremarkable, without endobronchial filling defect. The esophagus is grossly normal. LUNG PARENCHYMA: There is compressive atelectasis of the lung bases bilaterally. There is a small focus of ground glass opacification within the left upper lobe measuring 1.6 cm in size. PLEURA: There are moderate bilateral pleural effusions. BONES AND SOFT TISSUES: No bone or soft tissue abnormalities are noted. ABDOMEN/PELVIS: LIVER: The liver is enlarged measuring 19.5 cm in long axis. BILE DUCTS: There is no intrahepatic or extrahepatic biliary dilatation. GALLBLADDER: A gallstone is noted. There is no pericholecystic inflammatory change. PANCREAS: The pancreas is normal, without mass or ductal dilatation. SPLEEN: The spleen is at the upper limits of normal in size measuring 13.2 x 5.5 x 10.1 cm. UPPER GI TRACT: Evaluation of the gastrointestinal tract is limited by incomplete gastric distention. The upper GI tract is unremarkable. SMALL BOWEL & MESENTERY: The small bowel is normal in contour, course, and caliber. There is no obstruction or dilatation. COLON: Again noted is a loculated fluid collection within the right lower quadrant, with a gas-fluid level. An appendicolith is noted. This is increased in size compared to February 18, 2017, currently measuring approximately 8.2 x 2.1 x 2.8 cm in size. ADRENALS: Normal bilaterally. KIDNEYS: The kidneys are normal in shape, size, contour, and axis. There is no hydronephrosis or nephrolithiasis. BLADDER: The bladder is smooth in contour. PELVIC ORGANS: The uterus is fibroid. AORTA: The aorta is normal. IVC: Unremarkable LYMPH NODES: There is no lymphadenopathy by size criteria. ABDOMINAL WALL: There is no evidence for abdominal wall hernia. BONES AND SOFT TISSUES: Unremarkable OTHER: None IMPRESSION: 1. THERE HAS BEEN INTERVAL ENLARGEMENT OF A LOCULATED FLUID COLLECTION IN THE RIGHT LOWER QUADRANT CURRENTLY MEASURING UP TO 8.2 CENTERS IN MAXIMUM DIMENSION, CONSISTENT WITH PROGRESSION OF A PERIAPPENDICEAL ABSCESS GIVEN THE CLINICAL HISTORY. 2. MODERATE BILATERAL PLEURAL EFFUSIONS WITH BIBASILAR COMPRESSIVE ATELECTASIS. 3. HEPATOMEGALY. 4. THERE IS A 1.6 CM NONSOLID NODULE OF THE LEFT UPPER LOBE. THE RECOMMENDATIONS FOR FOLLOWUP AND MANAGEMENT OF AN INCIDENTALLY DETECTED NONSOLID PULMONARY NODULE GREATER THAN OR EQUAL TO 6 MM IN SIZE, IN A PATIENT WITHOUT A HISTORY OF MALIGNANCY, INCLUDE FOLLOW-UP CT IN 6-12 MONTHS TO CONFIRM PERSISTENCE, THEN CT EVERY 2 YEARS UNTIL 5 YEARS. NOTES: SIZE = AVERAGE LENGTH AND WIDTH; HIGH RISK IS DEFINED A HISTORY OF SMOKING OR OTHER KNOW RISK FACTORS FOR LUNG CANCER; LOW RISK IS DEFINED MINIMAL OR ABSENT HISTORY OF SMOKING OR OTHER KNOWN RISK FACTORS. Shan, H, JESSICA Rodriguez, CRISTOFER Freire, et al (2017) "Guidelines for Management of Incidental Pulmonary Nodules Detected on CT Images: From the Fleischner Society 2017." Radiology; 284(1): 228-243. doi:10.1148/radiol.[id number]
[2017-02-23] MEDS: Potassium Chloride LIQUID* 20 MEQ PACKET PO SCH (17:48)
[2017-02-23] MEDS ORDERED: Sodium Citrate/Citric Acid* 15 ML UDC PO ONE (18:03)
[2017-02-23] MEDS ORDERED: Levalbuterol 0.63MG/3ML NEB* UNIT OF USE INH ONE (18:03)
[2017-02-23] MEDS ORDERED: Scopolamine 1.5 mg* PATCH TRANSDERM PRN (18:05)
[2017-02-23] MEDS ORDERED: fentaNYL* 50 MCG/ML 2 ML VIAL (100 MCG VIAL) IV PRN (18:05)
[2017-02-23] MEDS ORDERED: oxyCODONE TAB* 5 MG TAB PO PRN (18:05)
[2017-02-23] MEDS ORDERED: HYDROmorphone INJ* 1 MG/ML CARPUJECT SYRINGE IV PRN (18:05)
[2017-02-23] MEDS ORDERED: Rocuronium* 10 MG/ML VIAL ONE (18:12)
[2017-02-23] MEDS ORDERED: Midazolam* 1 MG/ML 2 ML VIAL (2 MG) ONE ×2 (18:12→20:59)
[2017-02-23] MEDS ORDERED: fentaNYL* 50 MCG/ML 2 ML VIAL (100 MCG VIAL) ONE (18:12)
[2017-02-23] MEDS ORDERED: Propofol* 10 MG/ML 20 ML BTL IV PUSH ONE (18:13)
[2017-02-23] MEDS ORDERED: Succinylcholine* 20 MG/ML 10 ML VIAL ONE (18:13)
[2017-02-23] MEDS ORDERED: Lidocaine 2% PF * 5 ML VIAL ONE (18:13)
[2017-02-23] MEDS ORDERED: Levalbuterol 1.25MG/0.5ML NEB ONE (19:17)
[2017-02-23] MEDS ORDERED: Sodium Citrate/Citric Acid* 15 ML UDC ONE (19:17)
[2017-02-23] MEDS ORDERED: Ondansetron INJ* 2 MG/ML VIAL ONE (20:48)
[2017-02-23] MEDS ORDERED: Glycopyrrolate IV* 0.2 MG/ML 1 ML VIAL ONE (20:48)
[2017-02-23] MEDS ORDERED: Neostigmine Methylsulfate* 2 MG/2 ML SYRINGE ONE (20:48)
[2017-02-23] MEDS ORDERED: Cisatracurium* 2 MG/ML MDV 5 ML ONE (20:57)
[2017-02-23] MEDS ORDERED: NS 0.9% 1000 ML* 1,000 ML IV SCH (21:15)
[2017-02-23] MEDS ORDERED: Propofol* 100 ML ONE (21:37)
[2017-02-23] MEDS: Propofol* 1000 MG (10 MG/ML 100 ml) @ Per Protocol (in ICU Pyxis) IV SCH (21:55)
[2017-02-23] MEDS ORDERED: KCL 20 MEQ/100 ML IVPREMIX* 20 MEQ/100 ML BAG IV ONE (22:00)
--- NOTE | 2017-02-23 22:43 | RAD ---
INDICATION: Endotracheal tube placement COMPARISON: Most recent comparison chest x-ray is dated February 21, 2017 TECHNIQUE: Single AP portable view of the chest was obtained. FINDINGS: Image quality is compromised due to the relative inferiority of a portable chest x-ray. There has been interval placement of an endotracheal tube with the tip measuring approximately 3.8 cm above the simran. A gastric tube is seen with the tip terminating below the diaphragm at the expected location of the gastric fundus. There is increasing density obscuring the bilateral lung bases and bilateral hemidiaphragm. IMPRESSION: 1. Interval placement of appropriately positioned endotracheal tube and gastric tube according to radiographic standards in the AP projection. 2. Worsening aeration of the lungs consistent with pleural effusions and/or pulmonary edema.
[2017-02-23] MEDS: Pantoprazole IV* 40 MG IV SCH (22:55)
[2017-02-24] MEDS: fentaNYL* 50 MCG/ML 2 ML VIAL (100 MCG VIAL) IV PRN ×4 (01:09→17:26)
[2017-02-24] MEDS: Propofol* 1000 MG (10 MG/ML 100 ml) @ Per Protocol (in ICU Pyxis) IV SCH ×3 (03:34→08:12)
[2017-02-24 05:57] LABS: Hematocrit 23 % (35-47); Hemoglobin 7.7 g/dl (12.0-16.0); Mean Corpuscular HGB Conc 34 g/dl (31-36); Mean Corpuscular Hemoglobin 28 pg (27-31); Mean Corpuscular Volume 82 fL (80-97); Mean Platelet Volume 7 um3 (7.4-10.4); Red Blood Count 2.76 10^6/ul (4.0-5.4); Red Cell Distribution Width 15 % (10.5-15); White Blood Count 10.6 10^3/ul (3.5-10.8)
[2017-02-24] MEDS: Piperacillin/Tazobactam VIAL*) 3.375 GM in NS 0.9% 100 ML* 100 ML IVPB SCH ×3 (06:02→22:12)
[2017-02-24 06:11] LABS: BUN/Creatinine Ratio 5.4 (8-20); EGFR Non-African American 115.1 (>60); Potassium 3.7 mmol/L (3.5-5.0)
[2017-02-24] MEDS ORDERED: Furosemide IV* 10 MG/ML 2 ML VIAL (20 MG) IV SLOW PU ONE ×2 (08:38→18:00)
[2017-02-24] MEDS ORDERED: NS 0.9% 1000 ML* 1,000 ML IV SCH (08:45)
--- NOTE | 2017-02-24 08:50 | PN ---
Progress Note - Progress Note Date of Service: 02/24/17 SOAP: Subjective: Patient seen with Dr. Betancourt in room. Remains intubated and sedated. No events overnight. Objective: Tmax 100.4 HR upper 90s to 100 Abdomen appears non-distended, incisions clean and dry. Lungs with decreased breath sounds throughout, CXR reviewed from last night I/O reviewed, good urine output Assessment: POD#1, s/p diagnostic laparoscopy, appendectomy, evacuation of intra-abdominal abscess with washout. Plan: Vent per hospitalist/intesivist Decrease IVF One dose of Lasix per Dr. Betancourt order Possible CXR, ABGs and extubate later today. Continue Abx, Dr. Betancourt will get in touch with ID for their recommendations.
--- NOTE | 2017-02-24 09:38 | PN ---
Subjective Date of Service: 02/24/17 Interval History: Patient seen and examined at bedside. Denies fever, chills, shortness of breath , chest discomfort, N/V/D. Pt continues to be vented. Pt shakes head that pain is tolerable. Tele: Sinus rhythm, rate 90-100's. Family History: Unchanged from Admission Social History: Unchanged from Admission Past Medical History: Unchanged from Admission Objective Active Medications: Acetaminophen (Tylenol Tab*) 650 mg PO Q4H PRN Reason: mild pain or fever Hydrocodone Bitart/Acetaminophen ([place] 5-325 Tab*) 1 tab PO Q4H PRN Reason: PAIN - MILD TO MODERATE Hydrocodone Bitart/Acetaminophen ([place] 5-325 Tab*) 2 tab PO Q4H PRN Reason: PAIN - MODERATE TO SEVERE Albuterol (Ventolin 2.5 Mg/3 Ml Neb.[place]*) 2.5 mg INH Q4H PRN Reason: SOB/ WHEEZING Alprazolam (Xanax Tab*) 0.5 mg PO BID [facility] Buspirone HCl (Buspar Tab*) 10 mg PO BID PRN Reason: ANXIETY Carbamazepine (Tegretol Tab(*)) 400 mg PO BID [facility] Fentanyl Citrate (Fentanyl*) 25 mcg IV Q2H PRN Reason: PAIN Hydromorphone HCl (Dilaudid Inj*) 0.5 mg IV Q1H PRN Reason: Pain - severe Piperacillin Sod/Tazobactam (Sod 3.375 gm/ Sodium Chloride) 100 mls @ 25 mls/ hr IVPB Q8H [facility] Propofol (Diprivan*) 100 mls @ 2.585 mls/hr IV .(Initial Rate) STANISLAV; 5 MCG/KG/ MIN Sodium Chloride (Ns 0.9% 1000 Ml*) 1,000 mls @ 60 mls/hr IV .PER RATE [facility] Ibuprofen (Motrin Tab*) 400 mg PO Q6H PRN Reason: PAIN/TEMPERATURE Ondansetron HCl (Zofran Inj*) 4 mg IV Q4H PRN Reason: NAUSEA/VOMITING Pantoprazole Sodium (Protonix Iv*) 40 mg IV Q24H [facility] Pharmacy Profile Note (Scopolamine Patch Remove*) 1 note PATCH OFF Q72H ONE Stop: 02/26/17 18:06 Venlafaxine HCl (Effexor Xr Cap*) 75 mg PO QAM [facility] Vital Signs 02/23/17 02/23/17 02/23/17 10:09 10:42 11:20 Temperature 98.3 F Pulse Rate 99 Respiratory 18 18 16 Rate Blood Pressure 156/80 (mmHg) O2 Sat by Pulse 98 Oximetry 02/23/17 02/23/17 02/23/17 13:43 15:40 17:14 Temperature 100.4 F 100.9 F Pulse Rate 80 104 105 Respiratory 16 18 20 Rate Blood Pressure 155/66 (mmHg) O2 Sat by Pulse 91 92 87 Oximetry 02/23/17 02/23/17 02/23/17 17:35 17:38 21:22 Temperature Pulse Rate 93 Respiratory 20 18 18 Rate Blood Pressure 140/85 (mmHg) O2 Sat by Pulse 99 Oximetry 02/23/17 02/23/17 02/23/17 21:31 21:51 22:00 Temperature Pulse Rate 96 99 101 Respiratory Rate Blood Pressure 155/88 160/90 173/99 (mmHg) O2 Sat by Pulse 100 100 100 Oximetry 02/23/17 02/23/17 02/23/17 22:15 22:30 22:45 Temperature 98.5 F Pulse Rate 99 95 92 Respiratory 20 20 Rate Blood Pressure 149/82 145/79 148/80 (mmHg) O2 Sat by Pulse 100 100 100 Oximetry 02/23/17 02/23/17 02/23/17 22:54 23:00 23:15 Temperature Pulse Rate 95 95 Respiratory 19 19 Rate Blood Pressure 145/84 143/87 (mmHg) O2 Sat by Pulse 100 100 Oximetry 02/23/17 02/23/17 02/23/17 23:30 23:34 23:45 Temperature 99.4 F 98.6 F Pulse Rate 93 90 Respiratory Rate Blood Pressure 139/76 150/85 (mmHg) O2 Sat by Pulse 100 100 Oximetry 02/23/17 02/24/17 02/24/17 23:56 00:00 00:15 Temperature 99.1 F 99.1 F 98.8 F Pulse Rate 94 95 96 Respiratory 19 Rate Blood Pressure 142/81 134/78 (mmHg) O2 Sat by Pulse 99 98 99 Oximetry 02/24/17 02/24/17 02/24/17 00:30 00:45 01:00 Temperature 98.6 F 98.4 F 98.4 F Pulse Rate 97 97 92 Respiratory 18 Rate Blood Pressure 134/83 141/72 141/79 (mmHg) O2 Sat by Pulse 99 98 99 Oximetry 02/24/17 02/24/17 02/24/17 01:09 01:15 01:30 Temperature 98.6 F 98.8 F Pulse Rate 93 94 Respiratory 17 Rate Blood Pressure 134/83 135/72 (mmHg) O2 Sat by Pulse 99 98 Oximetry 02/24/17 02/24/17 02/24/17 01:45 02:00 02:15 Temperature 98.8 F 98.8 F 98.8 F Pulse Rate 98 95 98 Respiratory 18 Rate Blood Pressure 133/71 130/71 134/69 (mmHg) O2 Sat by Pulse 98 98 98 Oximetry 02/24/17 02/24/17 02/24/17 02:30 02:45 03:00 Temperature 98.6 F 98.6 F 98.6 F Pulse Rate 95 94 98 Respiratory 17 Rate Blood Pressure 119/67 127/65 130/69 (mmHg) O2 Sat by Pulse 98 98 98 Oximetry 02/24/17 02/24/17 02/24/17 03:15 03:30 03:44 Temperature 98.6 F 98.8 F Pulse Rate 92 92 Respiratory Rate Blood Pressure 129/76 135/78 (mmHg) O2 Sat by Pulse 99 98 96 Oximetry 02/24/17 02/24/17 02/24/17 03:45 04:00 04:15 Temperature 98.8 F 98.8 F 99.0 F Pulse Rate 95 95 94 Respiratory Rate Blood Pressure 137/72 130/74 130/73 (mmHg) O2 Sat by Pulse 95 95 96 Oximetry 02/24/17 02/24/17 02/24/17 04:26 04:30 04:45 Temperature 98.6 F 99.0 F 99.1 F Pulse Rate 94 94 Respiratory 18 Rate Blood Pressure 134/77 139/73 (mmHg) O2 Sat by Pulse 96 95 Oximetry 02/24/17 02/24/17 02/24/17 05:00 05:15 05:30 Temperature 99.3 F 99.3 F 99.3 F Pulse Rate 94 96 97 Respiratory 17 Rate Blood Pressure 126/75 136/73 131/73 (mmHg) O2 Sat by Pulse 95 95 95 Oximetry 02/24/17 02/24/17 02/24/17 05:45 06:00 06:06 Temperature 99.5 F 99.7 F Pulse Rate 94 92 Respiratory 18 Rate Blood Pressure 139/84 139/80 (mmHg) O2 Sat by Pulse 96 96 Oximetry 02/24/17 02/24/17 02/24/17 06:15 06:30 06:45 Temperature 99.9 F 99.9 F 99.9 F Pulse Rate 91 96 97 Respiratory Rate Blood Pressure 144/83 137/74 133/71 (mmHg) O2 Sat by Pulse 96 95 95 Oximetry 02/24/17 02/24/17 02/24/17 07:00 07:15 07:30 Temperature 99.9 F 100.0 F 100.2 F Pulse Rate 93 96 94 Respiratory 19 Rate Blood Pressure 137/80 140/85 129/86 (mmHg) O2 Sat by Pulse 95 95 95 Oximetry 02/24/17 02/24/17 02/24/17 07:45 07:55 08:00 Temperature 100.2 F 100.4 F Pulse Rate 97 97 100 Respiratory 18 19 Rate Blood Pressure 138/73 153/90 (mmHg) O2 Sat by Pulse 94 94 96 Oximetry 02/24/17 02/24/17 08:15 09:00 Temperature 100.2 F Pulse Rate 100 Respiratory 18 Rate Blood Pressure 137/75 (mmHg) O2 Sat by Pulse 94 Oximetry Oxygen Devices in Use Now: Endotracheal Tube, Mechanical Ventilator Appearance: NAD, laying in bed Ears/Nose/Mouth/Throat: Mucous Membranes Moist Respiratory: Symmetrical Chest Expansion and Respiratory Effort, Clear to Auscultation Cardiovascular: NL Sounds; No Murmurs; No JVD, RRR Abdominal: NL Sounds; No Tenderness; No Distention Extremities: No Edema Skin: No Rash or Ulcers, - - Dressing to ABD clean, dry and intact. Drain in place to ABD Neurological: Alert and Oriented x 3, NL Muscle Strength and Tone Lines/Tubes/Other Access: Clean, Dry and Intact Peripheral IV - site benign Nutrition: Taking PO's Result Diagrams: 02/24/17 05:40 02/24/17 05:40 Microbiology and Other Data: Microbiology 02/19/17 16:20 Gram Stain - Final Body Fluid - Abscess Body Fluid Culture - Preliminary Escherichia Coli Bacteroides Fragilis Enterococcus Avium Skin and Soft Tissue MRSA/MSSA (PCR - Final Mrsa Negative S.aureus Negative 02/21/17 00:02 Aerobic Blood Culture - Preliminary Blood Venous No Growth Day 1 Anaerobic Blood Culture - Preliminary No Growth Day 1 02/20/17 23:20 Aerobic Blood Culture - Preliminary Blood Venous No Growth Day 1 Anaerobic Blood Culture - Preliminary No Growth Day 1 Assess/Plan/Problems-Billing Assessment: Ms. Win is a 51 yo female with PMH significant for trigeminal neuralgia, anxiety, depression, obesity and ANDREZ who presented to the emergency room with abdominal pain and was found to have appendicitis with abscess, currently being treated with IV ABX by the surgical team. Hospitalists where asked to consult regarding redevelopment of fevers, with shortness of breath and cough. - Patient Problems (1) Appendicitis Code(s): K37 - UNSPECIFIED APPENDICITIS SNOMED Code(s): 65443538 Comment: - S/P CT guided abscess drainage 02/19 - Management per surgical team - S/P lap appy, evacuation of intra-abdominal abscess with washout, POD #1 - Continue Zosyn, pain management and bowel regimen (2) Acute respiratory failure with hypoxia Code(s): J96.01 - ACUTE RESPIRATORY FAILURE WITH HYPOXIA SNOMED Code(s): 57134961 Comment: - Post-op, intubated - CT chest 02/23 shows - moderate bilateral pleural effusions with bibasilar compressive atelectasis - Suspect some of her hypoxia may be secondary to fluid overload - Reveived IV lasix today (3) Atelectasis, bilateral Code(s): J98.11 - ATELECTASIS SNOMED Code(s): 96358652 Comment: - with cough - Shortness of breath and hypoxia improving - Chest xray shows bilateral atelectasis with possible pleural effusion - Continue IS and frequent ambulation - Continue albuterol nebulizers PRN for wheezing - Suspect some of her hypoxia may be secondary to fluid overload (4) Electrolyte abnormality Code(s): E87.8 - OTH DISORDERS OF ELECTROLYTE AND FLUID BALANCE, NEC SNOMED Code(s): 052556480 Comment: - Hypokalemia - Resolved - Hypomagnesemia - Resolved (5) JAELYN (obstructive sleep apnea) Code(s): G47.33 - OBSTRUCTIVE SLEEP APNEA (ADULT) (PEDIATRIC) SNOMED Code(s): 16124386 Comment: - Non compliant with CPAP (6) Incidental pulmonary nodule Code(s): R91.1 - SOLITARY PULMONARY NODULE SNOMED Code(s): 524234295 Comment: - ~ 1.6 cm nonsolid nodule YARIEL. - Will need repeat CT in 6-12 months (7) Anemia Code(s): D64.9 - ANEMIA, UNSPECIFIED SNOMED Code(s): 884662650 Comment: - Suspect chronic, secondary to acute blood loss d/t menorrhagia - Pt has heavy menses and known fibroids (8) Anxiety and depression Code(s): F41.8 - OTHER SPECIFIED ANXIETY DISORDERS SNOMED Code(s): 122943627 Comment: - Continue Buspar, Effexor, and Xanax PRN (9) Trigeminal neuralgia Code(s): G50.0 - TRIGEMINAL NEURALGIA SNOMED Code(s): 36668812 Comment: - Continue Tegretol (10) Morbid obesity with BMI of 40.0-44.9, adult Code(s): E66.01 - MORBID (SEVERE) OBESITY DUE TO EXCESS CALORIES; Z68.41 - BODY MASS INDEX (BMI) 40.0-44.9, ADULT SNOMED Code(s): 750348859 Comment: - BMI 41.4 (11) DVT prophylaxis Code(s): JUB2169 - SNOMED Code(s): 940884647 Comment: - SCDs (12) Full code status Code(s): Z78.9 - OTHER SPECIFIED HEALTH STATUS SNOMED Code(s): 825361350 Status and Disposition: Inpatient. Disposition per general surgery. Thank you for this consultation. Will continue to follow.
[2017-02-24] MEDS: ALPRAZolam TAB* 0.5 MG PO SCH ×2 (10:02→21:11)
[2017-02-24] MEDS: Venlafaxine EXT RELEASE CAP* 75 MG PO SCH (10:23)
[2017-02-24] MEDS: carBAMazepine TAB(*) 200 MG PO SCH ×2 (10:23→21:11)
[2017-02-24] MEDS ORDERED: fentaNYL* 50 MCG/ML 2 ML VIAL (100 MCG VIAL) IV ONE (12:00)
[2017-02-24] MEDS: Ondansetron INJ* 2 MG/ML VIAL IV PRN ×2 (12:13→16:29)
[2017-02-24] MEDS: Heparin VIAL(*) 5000 UNITS/ML VIAL (FIVE THOUSAND) SUBCUT SCH ×2 (15:00→22:08)
--- NOTE | 2017-02-24 16:27 | OP ---
CC: Dr. Sandoval.* DATE OF OPERATION: 02/23/17 - ROOM #333 DATE OF : 69 SURGEON: Selvin Betancourt MD. FARM SPECIALIST: None. ANESTHESIOLOGIST: Dr. Brumfield. ANESTHESIA: General anesthetic, local infiltration. PRE-OP DIAGNOSIS: Periappendiceal abscess. POST-OP DIAGNOSIS: Periappendiceal abscess. OPERATIVE PROCEDURE: Laparoscopy with drainage of periappendiceal abscess and appendectomy. DRAIN: A PETER drain. COUNTS: Sponge and instrument counts correct. ESTIMATED BLOOD LOSS: About 30 mL. SPECIMEN: Appendix and the cultures. DESCRIPTION OF PROCEDURE: The patient was supine on the operative table. After adequate general anesthetic, compression stockings, Marquis Hugger warmer, and intravenous antibiotics, the abdomen was prepped with antiseptic, draped in a sterile fashion. Small umbilical incision was created. Blunt port cannula was placed under direct vision. Insufflation was carried out with carbon dioxide. Additional cannulae, 5 mm suprapubic and subxiphoid were placed with small stab wounds under direct vision. Abscess was identified in the gutter adjacent to the right colon just below the tip of the liver as it corresponded to the area seen on CT scan. The colon was adherent to the sidewall but this was gently peeled off until a pocket of creamy pus was identified. This corresponded to the area seen on the CT scan. This was suctioned into a trap for culture and then irrigated and suctioned. At the base of this cavity was the fecalith, which had ruptured out from the appendix and was lying free in the abscess cavity. This was retrieved. Examination of the appendix revealed that the base of the appendix was not badly inflamed, so the base of the appendix was mobilized and divided using an endo CARLA stapler with a 60 mm quinonez cartridge. The distal two-thirds of the appendix wrapped up behind the cecum into the gutter and this was very inflamed, but was able to be teased off the back wall of the right colon, placed in the retrieval bag, and brought out through the umbilical site. The operative field was well irrigated with warm saline solution. Free fluid was suctioned out. No undrained pockets could be identified. A PETER drain was brought out through the inferior cannula site, placed up in to the perihepatic space in to the pericolic gutter and crossed in to the region of the adnexa and then out through the incision site. It was sutured to the skin with Prolene suture and then cannulae were removed. Pneumoperitoneum was allowed to escape. Umbilical fascia was closed with 0 Vicryl, followed by 5-0 Vicryl for skin, followed by Steri-Strips. She had low oxygenation at the completion of the case and anesthesia felt it is safest to keep her intubated. So, she will be going to the intensive care unit on the ventilator, but otherwise tolerated the procedure reasonably well. [id number]/[facility] #: [id number] [facility]
[2017-02-24] MEDS: HYDROcodone/ACETAMIN 5-325 MG* 1 TAB PO PRN (20:02)
[2017-02-24] MEDS: Pantoprazole IV* 40 MG IV SCH (21:13)
[2017-02-25] MEDS: HYDROcodone/ACETAMIN 5-325 MG* 1 TAB PO PRN ×3 (01:41→16:03)
[2017-02-25 05:28] LABS: Hematocrit 25 % (35-47); Hemoglobin 8.5 g/dl (12.0-16.0); Mean Corpuscular HGB Conc 34 g/dl (31-36); Mean Corpuscular Hemoglobin 28 pg (27-31); Mean Corpuscular Volume 83 fL (80-97); Mean Platelet Volume 7 um3 (7.4-10.4); Red Blood Count 3.06 10^6/ul (4.0-5.4); Red Cell Distribution Width 16 % (10.5-15); White Blood Count 9.9 10^3/ul (3.5-10.8)
[2017-02-25] MEDS: Heparin VIAL(*) 5000 UNITS/ML VIAL (FIVE THOUSAND) SUBCUT SCH ×3 (05:52→22:43)
[2017-02-25] MEDS: Piperacillin/Tazobactam VIAL*) 3.375 GM in NS 0.9% 100 ML* 100 ML IVPB SCH ×3 (05:54→22:43)
[2017-02-25] MEDS: carBAMazepine TAB(*) 200 MG PO SCH ×2 (08:38→20:53)
[2017-02-25] MEDS: Venlafaxine EXT RELEASE CAP* 75 MG PO SCH (08:39)
[2017-02-25] MEDS: ALPRAZolam TAB* 0.5 MG PO SCH ×2 (08:39→20:53)
--- NOTE | 2017-02-25 08:53 | PN ---
Subjective Date of Service: 02/25/17 Interval History: Patient seen and examined at bedside. Denies fever, chills, shortness of breath , chest discomfort, N/V/D. Pt states that her pain is controlled and she is tolerating clear liquids. Pt was encouraged to ambulate, use IS and cough & deep breath. Pt reports passing flatus. Pt was notified about YARIEL nodule and the need for follow-up CT in 6-12 months. Family History: Unchanged from Admission Social History: Unchanged from Admission Past Medical History: Unchanged from Admission Objective Active Medications: Acetaminophen (Tylenol Tab*) 650 mg PO Q4H PRN Reason: mild pain or fever Hydrocodone Bitart/Acetaminophen ([place] 5-325 Tab*) 1 tab PO Q4H PRN Reason: PAIN - MILD TO MODERATE Hydrocodone Bitart/Acetaminophen ([place] 5-325 Tab*) 2 tab PO Q4H PRN Reason: PAIN - MODERATE TO SEVERE Albuterol (Ventolin 2.5 Mg/3 Ml Neb.[place]*) 2.5 mg INH Q4H PRN Reason: SOB/ WHEEZING Alprazolam (Xanax Tab*) 0.5 mg PO BID [facility] Buspirone HCl (Buspar Tab*) 10 mg PO BID PRN Reason: ANXIETY Carbamazepine (Tegretol Tab(*)) 400 mg PO BID [facility] Fentanyl Citrate (Fentanyl*) 25 mcg IV Q2H PRN Reason: PAIN Heparin Sodium (Porcine) (Heparin Vial(*)) 5,000 units SUBCUT Q8HR [facility] Hydromorphone HCl (Dilaudid Inj*) 0.5 mg IV Q1H PRN Reason: Pain - severe Piperacillin Sod/Tazobactam (Sod 3.375 gm/ Sodium Chloride) 100 mls @ 25 mls/ hr IVPB Q8H [facility] Ibuprofen (Motrin Tab*) 400 mg PO Q6H PRN Reason: PAIN/TEMPERATURE Ondansetron HCl (Zofran Inj*) 4 mg IV Q4H PRN Reason: NAUSEA/VOMITING Pantoprazole Sodium (Protonix Iv*) 40 mg IV Q24H [facility] Pharmacy Profile Note (Scopolamine Patch Remove*) 1 note PATCH OFF Q72H ONE Stop: 02/26/17 18:06 Venlafaxine HCl (Effexor Xr Cap*) 75 mg PO QAM [facility] Vital Signs 02/24/17 02/24/17 02/24/17 09:00 09:15 09:30 Temperature 99.7 F 99.9 F 99.9 F Pulse Rate 93 93 94 Respiratory 19 Rate Blood Pressure 129/77 128/70 128/71 (mmHg) O2 Sat by Pulse 96 95 96 Oximetry 02/24/17 02/24/17 02/24/17 09:45 10:00 10:02 Temperature 99.9 F 99.7 F Pulse Rate 96 92 Respiratory 18 19 Rate Blood Pressure 128/73 133/71 (mmHg) O2 Sat by Pulse 96 95 Oximetry 02/24/17 02/24/17 02/24/17 10:15 10:30 10:45 Temperature 99.7 F 99.9 F 100.2 F Pulse Rate 91 87 102 Respiratory 26 Rate Blood Pressure 131/84 136/76 136/93 (mmHg) O2 Sat by Pulse 97 96 94 Oximetry 02/24/17 02/24/17 02/24/17 11:00 11:15 11:30 Temperature 99.7 F 100.4 F 100.8 F Pulse Rate 94 90 91 Respiratory 9 7 1 Rate Blood Pressure 132/76 133/77 138/77 (mmHg) O2 Sat by Pulse 86 92 92 Oximetry 02/24/17 02/24/17 02/24/17 11:45 12:00 12:12 Temperature 100.9 F 101.1 F Pulse Rate 93 96 Respiratory 19 4 23 Rate Blood Pressure 143/81 125/79 (mmHg) O2 Sat by Pulse 90 89 Oximetry 02/24/17 02/24/17 02/24/17 12:15 12:31 12:45 Temperature 101.1 F 100.9 F 101.1 F Pulse Rate 95 93 94 Respiratory 9 16 14 Rate Blood Pressure 160/75 133/80 131/81 (mmHg) O2 Sat by Pulse 92 93 94 Oximetry 02/24/17 02/24/17 02/24/17 13:00 13:17 13:30 Temperature 100.9 F 100.9 F 100.9 F Pulse Rate 95 101 93 Respiratory 16 23 2 Rate Blood Pressure 126/74 127/78 161/93 (mmHg) O2 Sat by Pulse 94 93 93 Oximetry 02/24/17 02/24/17 02/24/17 13:46 13:58 14:00 Temperature 100.9 F 100.8 F Pulse Rate 94 105 94 Respiratory 12 25 23 Rate Blood Pressure 157/74 (mmHg) O2 Sat by Pulse 95 100 95 Oximetry 02/24/17 02/24/17 02/24/17 14:01 14:16 14:30 Temperature 100.8 F 100.8 F 100.6 F Pulse Rate 95 95 95 Respiratory 18 26 27 Rate Blood Pressure 162/85 136/87 136/85 (mmHg) O2 Sat by Pulse 95 96 96 Oximetry 02/24/17 02/24/17 02/24/17 14:46 15:00 15:02 Temperature 100.6 F 100.6 F 100.6 F Pulse Rate 99 98 95 Respiratory 25 30 25 Rate Blood Pressure 168/113 158/88 (mmHg) O2 Sat by Pulse 94 94 93 Oximetry 02/24/17 02/24/17 02/24/17 15:30 16:00 17:26 Temperature 100.4 F 100.6 F Pulse Rate 98 94 Respiratory 34 27 24 Rate Blood Pressure 146/95 152/84 (mmHg) O2 Sat by Pulse 94 95 Oximetry 02/24/17 02/24/17 02/24/17 17:37 17:46 17:47 Temperature 98.9 F Pulse Rate 92 Respiratory 24 24 Rate Blood Pressure 145/71 (mmHg) O2 Sat by Pulse 93 93 Oximetry 02/24/17 02/24/17 02/24/17 18:48 20:00 20:02 Temperature Pulse Rate Respiratory 24 17 17 Rate Blood Pressure (mmHg) O2 Sat by Pulse Oximetry 02/24/17 02/24/17 02/24/17 20:05 21:11 22:18 Temperature 98.1 F Pulse Rate 88 Respiratory 16 17 16 Rate Blood Pressure 143/76 (mmHg) O2 Sat by Pulse 97 Oximetry 02/24/17 02/24/17 02/25/17 23:14 23:33 01:41 Temperature 98.5 F Pulse Rate 78 Respiratory 16 16 17 Rate Blood Pressure 132/68 (mmHg) O2 Sat by Pulse 98 Oximetry 02/25/17 02/25/17 02/25/17 03:54 04:15 05:56 Temperature 98.3 F Pulse Rate 74 Respiratory 16 18 16 Rate Blood Pressure 126/69 (mmHg) O2 Sat by Pulse 95 Oximetry 02/25/17 02/25/17 07:25 08:39 Temperature 98.3 F Pulse Rate 77 Respiratory 18 20 Rate Blood Pressure 116/63 (mmHg) O2 Sat by Pulse 96 Oximetry Oxygen Devices in Use Now: OxyMask - 3L Appearance: NAD, laying in bed Respiratory: Symmetrical Chest Expansion and Respiratory Effort, Clear to Auscultation Cardiovascular: NL Sounds; No Murmurs; No JVD, RRR Abdominal: NL Sounds; No Tenderness; No Distention Extremities: No Edema Skin: No Rash or Ulcers Neurological: Alert and Oriented x 3, NL Muscle Strength and Tone Lines/Tubes/Other Access: Clean, Dry and Intact Peripheral IV - site benign Nutrition: Taking PO's Result Diagrams: 02/25/17 04:50 02/24/17 05:40 Microbiology and Other Data: Microbiology 02/19/17 16:20 Gram Stain - Final Body Fluid - Abscess Body Fluid Culture - Preliminary Escherichia Coli Bacteroides Fragilis Enterococcus Avium Skin and Soft Tissue MRSA/MSSA (PCR - Final Mrsa Negative S.aureus Negative 02/21/17 00:02 Aerobic Blood Culture - Preliminary Blood Venous No Growth Day 1 Anaerobic Blood Culture - Preliminary No Growth Day 1 02/20/17 23:20 Aerobic Blood Culture - Preliminary Blood Venous No Growth Day 1 Anaerobic Blood Culture - Preliminary No Growth Day 1 Assess/Plan/Problems-Billing Assessment: Ms. Win is a 51 yo female with PMH significant for trigeminal neuralgia, anxiety, depression, obesity and ANDREZ who presented to the emergency room with abdominal pain and was found to have appendicitis with abscess, currently being treated with IV ABX by the surgical team. Hospitalists where asked to consult regarding redevelopment of fevers, with shortness of breath and cough. - Patient Problems (1) Appendicitis Code(s): K37 - UNSPECIFIED APPENDICITIS SNOMED Code(s): 99509410 Comment: - S/P CT guided abscess drainage 02/19 - S/P lap appy, evacuation of intra-abdominal abscess with washout, POD #2 - Pt meeting sepsis criteria on 02/23 w/ SIRS criteria (fever & tachycardia), not meeting qsofa criteria. SIRS criteria has resolved. - Management per surgical team - Continue Zosyn, pain management and bowel regimen (2) Acute respiratory failure with hypoxia Code(s): J96.01 - ACUTE RESPIRATORY FAILURE WITH HYPOXIA SNOMED Code(s): 55015892 Comment: - Post-op, extubated 02/24 - CT chest 02/23 shows - moderate bilateral pleural effusions with bibasilar compressive atelectasis - Suspect some of her hypoxia may be secondary to fluid overload - Reveived IV lasix 02/24 - Able to be weaned from 15L Oximask to 3L, continue to wean O2 as able (3) Atelectasis, bilateral Code(s): J98.11 - ATELECTASIS SNOMED Code(s): 58267333 Comment: - with cough - Shortness of breath and hypoxia improving - Suspect some of her hypoxia may be secondary to fluid overload, received IV lasix 02/24 - Chest xray shows bilateral atelectasis with possible pleural effusion - Continue IS, coughing and deep breathing and frequent ambulation - Continue albuterol nebulizers PRN for wheezing (4) Electrolyte abnormality Code(s): E87.8 - OTH DISORDERS OF ELECTROLYTE AND FLUID BALANCE, NEC SNOMED Code(s): 967215993 Comment: - Hypokalemia - Resolved - Hypomagnesemia - Resolved (5) JAELYN (obstructive sleep apnea) Code(s): G47.33 - OBSTRUCTIVE SLEEP APNEA (ADULT) (PEDIATRIC) SNOMED Code(s): 86913204 Comment: - Non compliant with CPAP (6) Incidental pulmonary nodule Code(s): R91.1 - SOLITARY PULMONARY NODULE SNOMED Code(s): 427874728 Comment: - ~ 1.6 cm nonsolid nodule YARIEL. - Will need repeat CT in 6-12 months (7) Anemia Code(s): D64.9 - ANEMIA, UNSPECIFIED SNOMED Code(s): 730368291 Comment: - Suspect chronic, secondary to acute blood loss d/t menorrhagia - Pt has heavy menses and known fibroids (8) Anxiety and depression Code(s): F41.8 - OTHER SPECIFIED ANXIETY DISORDERS SNOMED Code(s): 637552926 Comment: - Continue Buspar, Effexor, and Xanax PRN (9) Trigeminal neuralgia Code(s): G50.0 - TRIGEMINAL NEURALGIA SNOMED Code(s): 01212152 Comment: - Continue Tegretol (10) Morbid obesity with BMI of 40.0-44.9, adult Code(s): E66.01 - MORBID (SEVERE) OBESITY DUE TO EXCESS CALORIES; Z68.41 - BODY MASS INDEX (BMI) 40.0-44.9, ADULT SNOMED Code(s): 477176915 Comment: - BMI 41.4 (11) DVT prophylaxis Code(s): CXK9492 - SNOMED Code(s): 837335621 Comment: - SCDs (12) Full code status Code(s): Z78.9 - OTHER SPECIFIED HEALTH STATUS SNOMED Code(s): 710030214 Status and Disposition: Inpatient. Disposition per general surgery. Thank you for this consultation. Will continue to follow.
--- NOTE | 2017-02-25 10:14 | PN ---
Progress Note - Progress Note Date of Service: 02/25/17 SOAP: Subjective: Pt seen and examined. Doing well. Still on O2. No fluatus, some burping; tolerating clears abdominal pain Objective: af vss uo good, neg I/Os (pt received lasix) lungs clear abdo: soft/ ND/ tender at lower abdomen PETER serous Micro reviewed Laboratory Results - last 24 hr 02/25/17 04:50 WBC 9.9 RBC 3.06 L Hgb 8.5 L Hct 25 L MCV 83 MCH 28 MCHC 34 RDW 16 H Plt Count 393 MPV 7 L Neut % (Auto) 80.6 Lymph % (Auto) 9.6 L [place] % (Auto) 6.5 Eos % (Auto) 3.1 Baso % (Auto) 0.2 Absolute Neuts (auto) 8.0 H Absolute Lymphs (auto) 1.0 Absolute Monos (auto) 0.6 Absolute Eos (auto) 0.3 Absolute Basos (auto) 0 Absolute Nucleated RBC 0.01 Nucleated RBC % 0.1 Path: pending Assessment: POD 2 lap appy, drainage of abscess for perforated appendix, HD stable, respiratory embarrassment; overall doing very well Plan: advance diet OOB Toradol, pain control continue abx possible d/c home Fri or Sat on abx
[2017-02-25] MEDS: Ketorolac INJ* 30 MG/ML 1 ML VIAL IV PUSH PRN ×2 (11:13→19:27)
[2017-02-25] MEDS: Ondansetron INJ* 2 MG/ML VIAL IV PRN ×2 (15:10→19:27)
[2017-02-25] MEDS: Pantoprazole IV* 40 MG IV SCH (20:53)
[2017-02-26] MEDS: Piperacillin/Tazobactam VIAL*) 3.375 GM in NS 0.9% 100 ML* 100 ML IVPB SCH ×4 (06:08→23:07)
[2017-02-26] MEDS: Heparin VIAL(*) 5000 UNITS/ML VIAL (FIVE THOUSAND) SUBCUT SCH ×3 (06:08→21:36)
[2017-02-26] MEDS: Ketorolac INJ* 30 MG/ML 1 ML VIAL IV PUSH PRN ×3 (06:08→18:18)
[2017-02-26] MEDS: Ondansetron INJ* 2 MG/ML VIAL IV PRN (06:27)
--- NOTE | 2017-02-26 07:56 | PN ---
Progress Note - Progress Note Date of Service: 02/26/17 Note: Surgery Ms. Win reports she feels a little better. She has tolerated liquids, but does not feel ready to advance. She is passing flatus. She says she has pain, but it is manageable. Vital Signs 02/25/17 02/25/17 02/25/17 08:00 08:39 11:20 Temperature Pulse Rate Respiratory 20 20 20 Rate Blood Pressure (mmHg) O2 Sat by Pulse Oximetry 02/25/17 02/25/17 02/25/17 11:27 15:44 16:03 Temperature 98.8 F 97.9 F Pulse Rate 82 85 Respiratory 16 20 16 Rate Blood Pressure 121/61 129/74 (mmHg) O2 Sat by Pulse 95 94 Oximetry 02/25/17 02/25/17 02/25/17 16:59 19:27 19:45 Temperature Pulse Rate 84 Respiratory 14 18 18 Rate Blood Pressure (mmHg) O2 Sat by Pulse 96 Oximetry 02/25/17 02/25/17 02/25/17 20:11 20:53 23:31 Temperature 98.4 F Pulse Rate 94 Respiratory 20 18 16 Rate Blood Pressure 142/73 (mmHg) O2 Sat by Pulse 92 Oximetry 02/25/17 02/26/17 23:36 03:24 Temperature 98.6 F 98.3 F Pulse Rate 83 86 Respiratory 16 16 Rate Blood Pressure 132/72 155/79 (mmHg) O2 Sat by Pulse 94 93 Oximetry Lungs: clear heart: reg. abd: good BS, soft, mildly tender near PETER site. Dressings intact. PETER: serosanguinous drainage. Intake & Output 02/25/17 02/26/17 02/26/17 22:59 06:59 14:59 Intake Total 1050 407 Output Total 15 410 Balance 1035 -3 Intake: IV Fluids 227 NS 114 ZOSYN 113 Oral 1050 180 Output: PETER #1 15 10 Urine 0 400 Other: Estimated Void Medium # Voids 1 A/P: POD#3 s/p drainage of appendiceal abscess and appendectomy. Making progress. She will continue liquids till she feels ready to try something more. At that time she will likely be stable for discharge. CLFoster
[2017-02-26] MEDS: carBAMazepine TAB(*) 200 MG PO SCH ×2 (09:02→20:26)
[2017-02-26] MEDS: Venlafaxine EXT RELEASE CAP* 75 MG PO SCH (09:02)
[2017-02-26] MEDS: ALPRAZolam TAB* 0.5 MG PO SCH ×2 (09:02→20:26)
--- NOTE | 2017-02-26 16:52 | PN ---
Subjective Date of Service: 02/26/17 Interval History: This is a 51 yo obese female who is s/p appendectomy. Hospitalist group consulted for c/o cough and SOB. Patient experienced acute hypoxic resp failure post-op. Responded well to diuresis. Weaned to 1L supp O2. No c/o cough, CP or SOB today. ABd pain is tolerable, no n/v. Tolerating clear liquids today. Objective Active Medications: Acetaminophen (Tylenol Tab*) 650 mg PO Q4H PRN PRN Reason: mild pain or fever Hydrocodone Bitart/Acetaminophen ([place] 5-325 Tab*) 1 tab PO Q4H PRN PRN Reason: PAIN - MILD TO MODERATE Hydrocodone Bitart/Acetaminophen ([place] 5-325 Tab*) 2 tab PO Q4H PRN PRN Reason: PAIN - MODERATE TO SEVERE Last Admin: 02/25/17 16:03 Dose: 2 tab Albuterol (Ventolin 2.5 Mg/3 Ml Neb.Adelaide*) 2.5 mg INH Q4H PRN PRN Reason: SOB/WHEEZING Last Admin: 02/22/17 08:20 Dose: 2.5 mg Alprazolam (Xanax Tab*) 0.5 mg PO BID [facility] Last Admin: 02/26/17 09:02 Dose: 0.5 mg Buspirone HCl (Buspar Tab*) 10 mg PO BID PRN PRN Reason: ANXIETY Last Admin: 02/20/17 11:54 Dose: 10 mg Carbamazepine (Tegretol Tab(*)) 400 mg PO BID [facility] Last Admin: 02/26/17 09:02 Dose: 400 mg Heparin Sodium (Porcine) (Heparin Vial(*)) 5,000 units SUBCUT Q8HR [facility] Last Admin: 02/26/17 15:01 Dose: 5,000 units Hydromorphone HCl (Dilaudid Inj*) 0.5 mg IV Q1H PRN PRN Reason: Pain - severe Last Admin: 02/23/17 17:35 Dose: 0.5 mg Piperacillin Sod/Tazobactam (Sod 3.375 gm/ Sodium Chloride) 100 mls @ 25 mls/ hr IVPB Q8H [facility] Last Admin: 02/26/17 15:01 Dose: 25 mls/hr Ibuprofen (Motrin Tab*) 400 mg PO Q6H PRN PRN Reason: PAIN/TEMPERATURE Last Admin: 02/22/17 11:32 Dose: 400 mg Ketorolac Tromethamine (Toradol Inj*) 30 mg IV PUSH Q6H PRN PRN Reason: PAIN Stop: 02/27/17 23:59 Last Admin: 02/26/17 12:25 Dose: 30 mg Ondansetron HCl (Zofran Inj*) 4 mg IV Q4H PRN PRN Reason: NAUSEA/VOMITING Last Admin: 02/26/17 06:27 Dose: 4 mg Pantoprazole Sodium (Protonix Iv*) 40 mg IV Q24H [facility] Last Admin: 02/25/17 20:53 Dose: 40 mg Pharmacy Profile Note (Scopolamine Patch Remove*) 1 note PATCH OFF Q72H ONE Stop: 02/26/17 18:06 Last Admin: 02/26/17 16:35 Dose: Not Given Venlafaxine HCl (Effexor Xr Cap*) 75 mg PO QAM [facility] Last Admin: 02/26/17 09:02 Dose: 75 mg Vital Signs: Temp Pulse Resp BP Pulse Ox 97.9 F 86 16 130/66 95 02/26/17 15:26 02/26/17 15:26 02/26/17 15:26 02/26/17 15:26 02/26/17 16:00 Oxygen Devices in Use Now: Nasal Cannula Appearance: Middle aged female in NAD, accompanied by her Respiratory: Symmetrical Chest Expansion and Respiratory Effort, Clear to Auscultation Cardiovascular: NL Sounds; No Murmurs; No JVD, RRR Abdominal: - - soft, bowel sounds present, non tender to light palpation Extremities: - - trace edema in all extremities Skin: No Rash or Ulcers Neurological: Alert and Oriented x 3 Result Diagrams: 02/25/17 04:50 02/24/17 05:40 Microbiology and Other Data: Microbiology 02/19/17 16:20 Gram Stain - Final Body Fluid - Abscess Body Fluid Culture - Preliminary Escherichia Coli Bacteroides Fragilis Enterococcus Avium Skin and Soft Tissue MRSA/MSSA (PCR - Final Mrsa Negative S.aureus Negative 02/21/17 00:02 Aerobic Blood Culture - Preliminary Blood Venous No Growth Day 1 Anaerobic Blood Culture - Preliminary No Growth Day 1 02/20/17 23:20 Aerobic Blood Culture - Preliminary Blood Venous No Growth Day 1 Anaerobic Blood Culture - Preliminary No Growth Day 1 Assess/Plan/Problems-Billing Assessment: Ms. Win is a 51 yo female with PMH significant for trigeminal neuralgia, anxiety, depression, obesity and ANDREZ who presented to the emergency room with abdominal pain and was found to have appendicitis with abscess, failed conservative management now s/p appendectomy. Hospitalists where asked to consult regarding redevelopment of fevers, with shortness of breath and cough. - Patient Problems (1) Acute respiratory failure with hypoxia Comment: Resolved Post-op, extubated 02/24 Now weaned to 1L Likely due to pulm edema and atelectasis (2) Appendicitis Comment: With peritonitis, mariano sensitive EColi grew from peritoneal fluid Failed conservative management with CT guided drain and IV abx Now POD #3 S/P lap appy, evacuation of intra-abdominal abscess with washout Pt meeting sepsis criteria on 02/23 w/ SIRS criteria (fever & tachycardia), not meeting qsofa criteria. SIRS criteria has resolved. Management per surgical team Continue Zosyn, pain management and bowel regimen (3) Anemia Comment: Normocytic Suspect chronic, secondary to acute blood loss d/t menorrhagia Pt has heavy menses and known fibroids (4) Electrolyte abnormality Comment: - Hypokalemia - Resolved - Hypomagnesemia - Resolved (5) Incidental pulmonary nodule Comment: ~ 1.6 cm nonsolid nodule YARIEL. Will need repeat CT in 6-12 months (6) Morbid obesity with BMI of 40.0-44.9, adult Comment: BMI 41.4 (7) Anxiety and depression Comment: Continue Buspar, Effexor, and Xanax PRN (8) JAELYN (obstructive sleep apnea) Comment: Non compliant with CPAP (9) Trigeminal neuralgia Comment: Continue Tegretol (10) DVT prophylaxis Comment: SCDs (11) Full code status Status and Disposition: Inpatient. Disposition per general surgery. Hospitalist group will continue to follow
[2017-02-26] MEDS ORDERED: Scopolamine PATCH Remove* 1 NOTE MISC PATCH OFF ONE (18:05)
[2017-02-26] MEDS: Pantoprazole IV* 40 MG IV SCH (20:26)
[2017-02-27] MEDS: Ketorolac INJ* 30 MG/ML 1 ML VIAL IV PUSH PRN ×2 (00:30→06:23)
[2017-02-27] MEDS: Heparin VIAL(*) 5000 UNITS/ML VIAL (FIVE THOUSAND) SUBCUT SCH ×2 (05:45→14:34)
[2017-02-27] MEDS: Piperacillin/Tazobactam VIAL*) 3.375 GM in NS 0.9% 100 ML* 100 ML IVPB SCH (06:22)
--- NOTE | 2017-02-27 08:39 | PN ---
Progress Note - Progress Note Date of Service: 02/27/17 Note: Surgery Ms. Win feels ready to go home. She tolerated real food yesterday and was independent with ambulation. She does need instruction in managing the drain. Abd: soft, non-tender Incisions: clean and dry PETER 75cc since yesterday of serosanguinous fluid. A/P: POD#4 s/p drainage of appendiceal abscess and appendectomy; doing well, can go home once she is comfortable with the drain.
[2017-02-27] MEDS: carBAMazepine TAB(*) 200 MG PO SCH (09:32)
[2017-02-27] MEDS: ALPRAZolam TAB* 0.5 MG PO SCH (09:33)
[2017-02-27] MEDS: Venlafaxine EXT RELEASE CAP* 75 MG PO SCH (09:33)
[2017-02-27 11:41] VITALS: BP 159/79
--- NOTE | 2017-02-27 14:24 | PN ---
Subjective Date of Service: 02/27/17 Interval History: Patient is being discharged today by surgery service. Family History: Unchanged from Admission Social History: Unchanged from Admission Past Medical History: Unchanged from Admission Objective Active Medications: Acetaminophen (Tylenol Tab*) 650 mg PO Q4H PRN PRN Reason: mild pain or fever Hydrocodone Bitart/Acetaminophen ([place] 5-325 Tab*) 1 tab PO Q4H PRN PRN Reason: PAIN - MILD TO MODERATE Last Admin: 02/27/17 13:07 Dose: 1 tab Hydrocodone Bitart/Acetaminophen ([place] 5-325 Tab*) 2 tab PO Q4H PRN PRN Reason: PAIN - MODERATE TO SEVERE Last Admin: 02/25/17 16:03 Dose: 2 tab Albuterol (Ventolin 2.5 Mg/3 Ml Neb.Adelaide*) 2.5 mg INH Q4H PRN PRN Reason: SOB/WHEEZING Last Admin: 02/22/17 08:20 Dose: 2.5 mg Buspirone HCl (Buspar Tab*) 10 mg PO BID PRN PRN Reason: ANXIETY Last Admin: 02/20/17 11:54 Dose: 10 mg Carbamazepine (Tegretol Tab(*)) 400 mg PO BID [facility] Last Admin: 02/27/17 09:32 Dose: 400 mg Heparin Sodium (Porcine) (Heparin Vial(*)) 5,000 units SUBCUT Q8HR [facility] Last Admin: 02/27/17 05:45 Dose: 5,000 units Hydromorphone HCl (Dilaudid Inj*) 0.5 mg IV Q1H PRN PRN Reason: Pain - severe Last Admin: 02/23/17 17:35 Dose: 0.5 mg Piperacillin Sod/Tazobactam (Sod 3.375 gm/ Sodium Chloride) 100 mls @ 25 mls/ hr IVPB Q8H [facility] Last Admin: 02/27/17 06:22 Dose: 25 mls/hr Ibuprofen (Motrin Tab*) 400 mg PO Q6H PRN PRN Reason: PAIN/TEMPERATURE Last Admin: 02/22/17 11:32 Dose: 400 mg Ketorolac Tromethamine (Toradol Inj*) 30 mg IV PUSH Q6H PRN PRN Reason: PAIN Stop: 02/27/17 23:59 Last Admin: 02/27/17 06:23 Dose: 30 mg Ondansetron HCl (Zofran Inj*) 4 mg IV Q4H PRN PRN Reason: NAUSEA/VOMITING Last Admin: 02/26/17 06:27 Dose: 4 mg Pantoprazole Sodium (Protonix Iv*) 40 mg IV Q24H [facility] Last Admin: 02/26/17 20:26 Dose: 40 mg Venlafaxine HCl (Effexor Xr Cap*) 75 mg PO QAM [facility] Last Admin: 02/27/17 09:33 Dose: 75 mg Vital Signs: Temp Pulse Resp BP Pulse Ox 98.0 F 87 20 159/79 97 02/27/17 11:37 02/27/17 13:03 02/27/17 13:07 02/27/17 11:37 02/27/17 13:03 Oxygen Devices in Use Now: Nasal Cannula Appearance: Patient is showering, and not available for exam Result Diagrams: 02/25/17 04:50 02/24/17 05:40 Microbiology and Other Data: Microbiology 02/19/17 16:20 Gram Stain - Final Body Fluid - Abscess Body Fluid Culture - Preliminary Escherichia Coli Bacteroides Fragilis Enterococcus Avium Skin and Soft Tissue MRSA/MSSA (PCR - Final Mrsa Negative S.aureus Negative 02/21/17 00:02 Aerobic Blood Culture - Preliminary Blood Venous No Growth Day 1 Anaerobic Blood Culture - Preliminary No Growth Day 1 02/20/17 23:20 Aerobic Blood Culture - Preliminary Blood Venous No Growth Day 1 Anaerobic Blood Culture - Preliminary No Growth Day 1 Assess/Plan/Problems-Billing Assessment: Ms. Win is a 51 yo female with PMH significant for trigeminal neuralgia, anxiety, depression, obesity and ANDREZ who presented to the emergency room with abdominal pain and was found to have appendicitis with abscess, failed conservative management now s/p appendectomy. Hospitalists where asked to consult regarding redevelopment of fevers, with shortness of breath and cough. - Patient Problems (1) Acute respiratory failure with hypoxia Comment: Resolved Post-op, extubated 02/24 Now stable on RA Likely due to pulm edema and atelectasis (2) Appendicitis Comment: With peritonitis, growing EColi, enterococcus and Bacteroides grew from peritoneal fluid Failed conservative management with CT guided drain and IV abx Now POD #4 S/P lap appy, evacuation of intra-abdominal abscess with washout Pt meeting sepsis criteria on 02/23 w/ SIRS criteria (fever & tachycardia), not meeting qsofa criteria. SIRS criteria has resolved. Management per surgical team Abx at dc per surgery (3) Anemia Comment: Normocytic Suspect chronic, secondary to acute blood loss d/t menorrhagia Pt has heavy menses and known fibroids (4) Electrolyte abnormality Comment: - Hypokalemia - Resolved - Hypomagnesemia - Resolved (5) Incidental pulmonary nodule Comment: ~ 1.6 cm nonsolid nodule YARIEL. Will need repeat CT in 6-12 months (6) Morbid obesity with BMI of 40.0-44.9, adult Comment: BMI 41.4 (7) Anxiety and depression Comment: Continue Buspar, Effexor, and Xanax PRN (8) JAELYN (obstructive sleep apnea) Comment: Non compliant with CPAP (9) Trigeminal neuralgia Comment: Continue Tegretol (10) DVT prophylaxis Comment: SCDs (11) Full code status Status and Disposition: Inpatient. Discharge by surgery. No medical concerns, no new medications necessary at dc, may resume usual home medications. Abx per surgery.
== END 2017-02-27 14:45 | disposition home or self-care (01) | DRG 225 ==
LOC: SSU 21:20 → ICU 02-23 21:32 → SSU 02-24 17:12
PROVIDERS: ADMIT Surgery; ATTEND Hospitalist
PROC: 5A1935Z Respiratory Ventilation, Less than 24 Consecutive Hours (ICD-10-PCS; 2017-02-23)
PROC: 0BH17EZ Insertion of Endotracheal Airway into Trachea, Via Natural or Artificial Opening (ICD-10-PCS; 2017-02-23)
PROC: 0DTJ4ZZ Resection of Appendix, Percutaneous Endoscopic Approach (ICD-10-PCS; principal; 2017-02-23 19:00)
PROC: 0BP1XDZ Removal of Intraluminal Device from Trachea, External Approach (ICD-10-PCS; 2017-02-24)
DX: K35.3 Acute appendicitis with localized peritonitis (principal); J96.01 Acute respiratory failure with hypoxia; Z68.41 Body mass index [BMI] 40.0-44.9, adult; J98.11 Atelectasis; K80.20 Calculus of gallbladder without cholecystitis without obstruction; F41.9 Anxiety disorder, unspecified; F32.9 Major depressive disorder, single episode, unspecified; G50.0 Trigeminal neuralgia; K21.9 Gastro-esophageal reflux disease without esophagitis; G47.33 Obstructive sleep apnea (adult) (pediatric); E87.6 Hypokalemia; E83.42 Hypomagnesemia; D64.9 Anemia, unspecified; R91.1 Solitary pulmonary nodule; E66.01 Morbid (severe) obesity due to excess calories
CPT/HCPCS: 36415; 49406; 71010; 71020; 71260; 74177; 76705; 80048; 83735; 85025; 86140; 87040; 87070; 87073; 87076; 87077; 87185; 87186; 87205; 87640; 87641; 88304; 94002; 94003; 94640; 94760; A9270-GY; J0330; J1170; J1644; J1885; J1940; J2250; J2405; J2543; J2704; J3010; J3475; J3480; Q9967

== ENCOUNTER 2017-03-04 20:42 | Observation (INO) | payer BC ==
[2017-03-04] MEDS ORDERED: Acetaminophen TAB* 325 MG PO PRN (21:07)
[2017-03-04] MEDS ORDERED: Ondansetron INJ* 2 MG/ML VIAL IV PRN (21:07)
[2017-03-04] MEDS: NS 0.9% 1000 ML* 1,000 ML IV SCH (22:22)
[2017-03-04] MEDS: metroNIDAZOLE IV 500 MG/100ML* 500 MG/100 ML BAG IVPB SCH (22:22)
[2017-03-04] MEDS: oxyCODONE/Acetamin 5/325 MG* TAB PO PRN (22:58)
[2017-03-04] MEDS: Piperacillin/Tazobactam VIAL*) 3.375 GM in NS 0.9% 100 ML* 100 ML IVPB SCH (23:37)
[2017-03-05] MEDS: HYDROmorphone INJ* 1 MG/ML CARPUJECT SYRINGE IV PRN ×3 (03:42→22:12)
[2017-03-05] MEDS: metroNIDAZOLE IV 500 MG/100ML* 500 MG/100 ML BAG IVPB SCH ×3 (05:34→22:01)
[2017-03-05 05:35] LABS: Hematocrit 29 % (35-47); Hemoglobin 9.4 g/dl (12.0-16.0); Mean Corpuscular HGB Conc 33 g/dl (31-36); Mean Corpuscular Hemoglobin 27 pg (27-31); Mean Corpuscular Volume 82 fL (80-97); Mean Platelet Volume 7 um3 (7.4-10.4); Red Blood Count 3.53 10^6/ul (4.0-5.4); Red Cell Distribution Width 16 % (10.5-15); White Blood Count 14.1 10^3/ul (3.5-10.8)
[2017-03-05 05:45] LABS: BUN/Creatinine Ratio 10.9 (8-20); C Reactive Protein 316.53 mg/L (< 5.00); Calcium 9.5 mg/dL (8.6-10.3); EGFR African American 126.8 (>60); EGFR Non-African American 98.6 (>60); Potassium 4.1 mmol/L (3.5-5.0)
[2017-03-05] MEDS: Piperacillin/Tazobactam VIAL*) 3.375 GM in NS 0.9% 100 ML* 100 ML IVPB SCH ×2 (06:50→15:36)
[2017-03-05] MEDS ORDERED: Iohexol 300* (CONTRAST) 10 ML SDV IV ONE (07:16)
--- NOTE | 2017-03-05 08:34 | PN ---
Progress Note - Progress Note Date of Service: 03/05/17 Note: HD#1 re-admit s/p perf aapx w/ abscess. Feeling weak and run down at home, seen in [facility]. WBC 20 K. Brought in for OBV. Abd soft minimally tender. PETER with brownish drainage. WBC down to 14K this AM Will check CT scan. C Dif pending. D/W Dr Alcantar-when ready for discharge will send on oral levaquin and flagyl.
[2017-03-05] MEDS: carBAMazepine TAB(*) 200 MG PO SCH ×2 (09:10→22:00)
[2017-03-05] MEDS: Venlafaxine EXT RELEASE CAP* 75 MG PO SCH (09:10)
--- NOTE | 2017-03-05 10:23 | RAD ---
INDICATION: Post appendectomy March 01, 2017. Assess for abscess. COMPARISON: No relevant prior exams available on the [facility] PACS for comparison. TECHNIQUE: Multidetector CT images were obtained from the lung bases to the ischial tuberosities with 111 mL Omnipaque 300 IV and oral contrast. Multiplanar reformation. REPORT: Minimal linear basilar atelectasis. Negative for persistent pleural effusions. Unremarkable CT appearance of the liver, gallbladder, pancreas, spleen. No CT abnormality of the upper GI or small bowel. Surgical drain in place extending from the RIGHT lower quadrant at the level of the appendectomy bed cephalad in the RIGHT paracolic gutter to lateral posterior margin of Morison's pouch. Trace free fluid in the RIGHT paracolic gutter. Negative for free air. No loculated peritoneal fluid collection evident. A few colonic diverticula are visualized. Negative for findings of acute diverticulitis. Normal adrenal glands. Unremarkable kidneys with symmetric nephrograms and pyelograms. Unremarkable nondilated ureters. Partially distended urinary bladder with multiple foci of luminal gas. Mild pericholecystic inflammatory change at the RIGHT anterior cephalad margin. Fibroid uterus with dominant 6 cm RIGHT fundal pedunculated fibroid. Unremarkable adnexal regions. Negative for lymphadenopathy. Unremarkable abdominal aorta and iliac arteries. Physiologic distention of the IVC. Negative for suspicious osseous lesions. IMPRESSION: 1. Surgical drain in place extending from the RIGHT lower quadrant at the level of the appendectomy bed cephalad in the RIGHT paracolic gutter to lateral posterior margin of Morison's pouch. Trace free fluid in the RIGHT paracolic gutter. Negative for free air. No peritoneal abscess collection evident. 2. Foci of intraluminal gas in the partially distended urinary bladder. This may reflect recent instrumentation. Correlate with clinical data. 2. Resolution of previous pleural effusions.
[2017-03-05] MEDS: NS 0.9% 1000 ML* 1,000 ML IV SCH (12:40)
--- NOTE | 2017-03-05 12:40 | HP ---
AMENDED REPORT NOW INCLUDES COSIGNER DESIGNATION - ESIGNED BEFORE ADJUSTMENT CC: Dr. Aleks Alcantar; Chery Sandoval, DO * ADMISSION HISTORY AND PHYSICAL: DATE OF ADMISSION: 03/05/17 PATIENT OF: Selvin Betancourt MD * (DICTATED BY ANGELICA REEVES) REASON FOR ADMISSION: Abdominal pain. HISTORY OF PRESENT ILLNESS: Nichole is a pleasant 51-year-old female who is well known to us from prior admission a week ago due to abdominal pain. The patient was admitted back on 02/18/17 with apparent appendicitis with abscess formation for which she was managed medically for a couple of days using IV antibiotics. An attempt to place CT-guided drain by Radiology was done; however , there was no adequate amount of abscess fluid to leave a drain on and approximately 1 cc of purulent material was extracted for culture and sensitivity. The patient did not do well clinically over the course, still complaining of abdominal pain with high fever up to 102 degrees as well as leukocytosis for which she was taken to the operating room on Wednesday, where she had a diagnostic laparoscopy, appendectomy and abdominal washout and PETER drain was left in place. The patient was then kept in the ICU overnight and was extubated on the following morning. She did clinically very well after that and continued on IV antibiotics for a couple more days and eventually was discharged home on Wednesday. She reports no significant changes since she has been in home. However, she started to have mild suprapubic and right lower quadrant abdominal pain again. She was seen yesterday at [facility] by Dr. Manning and was found to have changes in the output of her PETER drain that appeared to be more purulent and darker color. She also complained of generalized malaise, fatigue and had no energy to do anything at home. She also had complained of decreased appetite; however, she denies any nausea, vomiting, or changes in the bowel habits. She had no fever or chills at home either. Given her generalized symptoms and the changes in the output of her drain, the patient was directly admitted to the hospital for further evaluation and get a CT scan as well. PAST MEDICAL HISTORY: Significant for recent perforated appendicitis with abscess formation, status post diagnostic laparoscopy with evacuation of abscess and appendectomy last week. She also has history of trigeminal neuralgia on the right side, obesity, anxiety, depression, and iron deficiency anemia. PAST SURGICAL HISTORY: As mentioned above. 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 Douglas. CURRENT MEDICATIONS: Her medications at home include: 1. Tegretol 200 mg q.i.d. 2. Norgestrel with ethinyl estradiol for control once daily. 3. Buspirone 5 mg q.p.m. 4. Alprazolam 0.5 mg t.i.d. as needed for anxiety. ALLERGIES: She has no known drug allergies. FAMILY HISTORY: She denies any family history of colorectal malignancies. SOCIAL HISTORY: The patient is . She is a nonsmoker. Denies alcohol intake. REVIEW OF SYSTEMS: See HPI, otherwise negative. She denies any headache, dizziness, blurred vision, or diplopia. No sore throat, palpitation, chest pain , or shortness of breath. She denies any fever, chills, night sweats, or recent weight loss. No dysuria, hematuria, or urinary frequency. PHYSICAL EXAMINATION GENERAL: She is a pleasant, healthy appearing, middle-aged female, in no acute distress or discomfort at the time of admission. VITAL SIGNS: Her vitals this morning revealed temperature of 98.2, pulse of 98 , respiration of 20, blood pressure of 141/62, and O2 sat of 99% on room air. HEENT: Head is normocephalic, atraumatic. Sclerae anicteric. PERRLA. EOMs intact. Oropharynx is pink, moist with no exudate. NECK: Supple. Trachea midline. No cervical adenopathy or thyromegaly. LUNGS: Clear to auscultation bilaterally. HEART: Regular rate and rhythm. Normal S1 and S2 without rubs, murmurs, or gallops. BACK: Normal curvature. No CVA tenderness. BREASTS: Exam deferred at this time. ABDOMEN: Soft and nondistended. There is mild right lower quadrant and suprapubic tenderness noted on deep palpation. There is no guarding, rigidity, or rebound tenderness. No hernias, masses, or hepatosplenomegaly. Incisions from prior laparoscopy appears to be well healed. There is a PETER drain at the left lower quadrant with approximately 20 cc of dark, brownish purulent material. EXTREMITIES: Without cyanosis, clubbing, or edema. RECTAL: Exam deferred at this time. NEUROLOGIC: Grossly intact. LABORATORY DATA: Her CBC today showed leukocytosis with white count of 14,000 which is up from her white count on discharge a week ago that was 9000. Hemoglobin is 9.4, hematocrit 29, and platelets of 623. Her chemistry revealed sodium of 133, potassium 4.1, chloride 99, CO2 of 25, BUN of 7, and creatinine of 0.7. C-reactive protein remains high with value of 316. ACCESSORY DIAGNOSTIC DATA: The patient had a CT scan of the abdomen and pelvis earlier today that revealed surgical drain secured in place extending to her right lower quadrant and right gutter as well as a trace of free fluid in the right paracolic gutter. There was also foci of intraluminal gas in a partially distended urinary bladder. IMPRESSION: A 51-year-old female with lower abdominal pain and recent history of perforated appendicitis and abscess formation who has noticed increased fatigue and malaise over that past few days as well as changes in the color of the drain output. PLAN: The patient will be admitted for observation under surgical services. She was covered empirically with Zosyn and Flagyl and pending on more culture and sensitivity from the drain output. Dr. Betancourt had contacted Dr. Alcantar for ID consultation and to discuss proper antibiotic coverage as an outpatient. She appears to be clinically stable at this point and we will maintain her unclear liquid diet for the time being. The case will be also discussed with Dr. Betancourt for further recommendation regarding her care. ANGELICA REEVES [id number]/[facility] #: [id number] [facility] PSYCHIATRIC CENTERLizzie
[2017-03-05 13:51] LABS: Urine Bacteria Absent (Absent); Urine Bilirubin Negative (Negative); Urine Glucose Negative (Negative); Urine Nitrite Negative (Negative)
[2017-03-05] MEDS: ALPRAZolam TAB* 0.25 MG PO SCH (22:00)
[2017-03-06] MEDS: Piperacillin/Tazobactam VIAL*) 3.375 GM in NS 0.9% 100 ML* 100 ML IVPB SCH ×2 (00:03→07:47)
[2017-03-06] MEDS: NS 0.9% 1000 ML* 1,000 ML IV SCH (02:33)
[2017-03-06] MEDS: HYDROmorphone INJ* 1 MG/ML CARPUJECT SYRINGE IV PRN (05:00)
[2017-03-06 05:18] LABS: Hematocrit 27 % (35-47); Mean Corpuscular HGB Conc 33 g/dl (31-36); Mean Corpuscular Hemoglobin 27 pg (27-31); Mean Corpuscular Volume 82 fL (80-97); Mean Platelet Volume 7 um3 (7.4-10.4); Red Blood Count 3.27 10^6/ul (4.0-5.4); Red Cell Distribution Width 15 % (10.5-15); White Blood Count 7.6 10^3/ul (3.5-10.8)
[2017-03-06] MEDS: metroNIDAZOLE IV 500 MG/100ML* 500 MG/100 ML BAG IVPB SCH (05:50)
[2017-03-06] MEDS: carBAMazepine TAB(*) 200 MG PO SCH (07:46)
[2017-03-06] MEDS: Venlafaxine EXT RELEASE CAP* 75 MG PO SCH (07:47)
[2017-03-06] MEDS: ALPRAZolam TAB* 0.25 MG PO SCH (07:47)
[2017-03-06 12:35] VITALS: BP 129/64
[2017-03-06] MEDS: oxyCODONE/Acetamin 5/325 MG* TAB PO PRN (13:36)
[2017-03-06] MEDS ORDERED: PIPERACILLIN IVPB SCH ×2 (14:23→15:00)
[2017-03-06] MEDS ORDERED: TAZOBACTAM IVPB SCH ×2 (14:23→15:00)
[2017-03-06] MEDS ORDERED: D5W IVPB SCH ×2 (14:23→15:00)
--- NOTE | 2017-03-06 14:50 | DS ---
CC: Dr. Betancourt; Dr. Chery Sandoval. DISCHARGE SUMMARY: DATE OF ADMISSION: 03/04/17. DATE OF DISCHARGE: 03/06/17. ADMITTING DIAGNOSES: 1. Abdominal pain and abdominal infection. 2. Leukocytosis, status post perforated appendicitis. OPERATIVE PROCEDURE ON THIS ADMISSION: None. HOSPITAL COURSE: Patient came to the hospital on 03/04/17 having been transferred from [facility] with white blood count of 20,000 and having abdominal pain. She was put on intravenous antibioti cs, had a CT scan, did not show any additional collections that required drainage. She was maintaine d on intravenous Zosyn and defervesced very quickly with a drop in her white blood count to 7000 by D and a gradual resolution in her thrombocytosis. So, she was discharged home on 03/06/17 tolerating oral intake. She will be on oral antibiotics and will follow up in the office in about 3 days. She will continue with the Sumeet Dorsey drain. [id number]/[facility] #: [id number]
== END 2017-03-06 14:40 | disposition home or self-care (01) ==
LOC: SSU 20:42 → INTOOBSV 20:42
PROVIDERS: ADMIT Surgery; ATTEND Surgery
DX: R10.31 Right lower quadrant pain (principal); K65.9 Peritonitis, unspecified; Z98.890 Other specified postprocedural states
CPT/HCPCS: 36415; 74177; 80048; 81003; 81015; 85025; 86140; 87493; 96365; 96366; 96367; 96375; 96376; A9270-GY; G0378; J1170; J2543; J3490; Q9967

== ENCOUNTER 2017-07-15 07:37 | Observation (INO) | payer BC ==
[2017-07-15] MEDS ORDERED: LORazepam TAB(*) 1 MG ONE (07:53)
[2017-07-15] MEDS ORDERED: Clindamycin 900 MG IVPREMIX(* 900 MG/50 ML SDV IV ONE (08:00)
[2017-07-15] MEDS ORDERED: Scopolamine 1.5 mg* PATCH TRANSDERM ONE (08:00)
[2017-07-15] MEDS ORDERED: Naproxen TAB* 250 MG PO ONE (08:00)
[2017-07-15 09:06] LABS: ABS Basophils 0 10^3/ul (0-0.2); ABS Eosinophils 0.1 10^3/ul (0-0.6); ABS Monocytes 0.5 10^3/ul (0-0.8); ABS Neutrophils 9.5 10^3/ul (1.5-7.7); ABS Nucleated RBC 0 10^3/ul; Eosinophil % 0.8 % (0-6); Hematocrit 38 % (35-47); Hemoglobin 13.3 g/dl (12.0-16.0); Lymphocyte % 8.9 % (25-47); Mean Corpuscular HGB Conc 35 g/dl (31-36); Mean Corpuscular Hemoglobin 33 pg (27-31); Mean Corpuscular Volume 94 fL (80-97); Mean Platelet Volume 7.3 um3 (7.4-10.4); Nucleated Red Blood Cells % 0; Platelet Count 217 10^3/ul (150-450); Red Blood Count 4.05 10^6/ul (4.0-5.4); Red Cell Distribution Width 14 % (10.5-15); White Blood Count 11.1 10^3/ul (3.5-10.8)
[2017-07-15 09:15] LABS: INR 0.93 (0.77-1.02)
[2017-07-15] MEDS ORDERED: Ondansetron INJ* 2 MG/ML VIAL ONE ×2 (09:23→10:19)
[2017-07-15] MEDS ORDERED: oxyCODONE SR TAB(*) 10 MG TAB.SR ONE (09:24)
[2017-07-15] MEDS ORDERED: Heparin 2 UNITS/ML IVPREMIX* 2,000 ML IV ONE (09:55)
[2017-07-15] MEDS ORDERED: Lidocaine 1% INJ* 10 MG/ML 30 ML SDV ONE (09:56)
[2017-07-15] MEDS ORDERED: Iohexol 350 (CONTRAST) 200 ML MDV IV ONE (09:56)
[2017-07-15] MEDS ORDERED: fentaNYL* 50 MCG/ML 2 ML VIAL (100 MCG VIAL) ONE ×4 (10:04→11:56)
[2017-07-15] MEDS ORDERED: Midazolam* 1 MG/ML 5 ML VIAL (5 MG) ONE (10:05)
[2017-07-15] MEDS ORDERED: Flumazenil* 0.1 MG/ML 5 ML MDV ONE (10:05)
[2017-07-15] MEDS ORDERED: Naloxone* 0.4 MG/ML 1 ML VIAL ONE (10:05)
[2017-07-15] MEDS ORDERED: nitroGLYCERIN DRIP* 25,000 MCG/250 ML BTL ONE (10:06)
[2017-07-15] MEDS ORDERED: Ketorolac INJ* 30 MG/ML 1 ML VIAL ONE ×2 (10:06→10:07)
[2017-07-15] MEDS ORDERED: HYDROmorphone PCA* 20 MG/20 ML PCA.SYRING ONE (11:37)
[2017-07-15] MEDS ORDERED: HYDROMORPHONE 2 MG/ML ONE (12:46)
[2017-07-15] MEDS ORDERED: busPIRone TAB* 10 MG PO PRN (14:12)
[2017-07-15] MEDS ORDERED: HYDROmorphone PCA* 20 MG/20 ML PCA.SYRING PCA SCH (15:00)
[2017-07-15] MEDS ORDERED: Ondansetron INJ* 2 MG/ML VIAL IV SCH (15:30)
[2017-07-15] MEDS ORDERED: Ketorolac INJ* 15 MG/ML 1 ML VIAL IV PUSH SCH (16:30)
[2017-07-15] MEDS: Ketorolac INJ* 15 MG/ML 1 ML VIAL IV PUSH SCH ×2 (18:05→23:59)
[2017-07-15] MEDS: Ondansetron INJ* 2 MG/ML VIAL IV SCH ×2 (18:05→23:59)
[2017-07-15] MEDS: carBAMazepine TAB(*) 200 MG PO SCH ×2 (18:06→20:53)
--- NOTE | 2017-07-15 18:14 | RAD ---
CPT II Codes: G9500 Procedure(s) performed: * Pelvic arteriogram including the bilateral iliac arteries including the proximal portions of the superficial femoral arteries and femoral profundi. * Catheter arteriography of the bilateral uterine arteries. * Catheter embolization of the bilateral uterine arteries. Date of service: July 15, 2017 Indication for procedure: Heavy menstrual bleeding in the presence of multiple uterine fibroids. Comparison: MRI of the pelvis July 09, 2017 Contrast: 100 mL Omnipaque 300 Fluoroscopy Time: 37.4 minutes Vessels Accessed: Percutaneous access was obtained with ultrasound guidance in the right common femoral artery in the retrograde direction towards the heart. Catheter arteriography was performed with the catheter tip in the following arteries: Bilateral common iliac arteries, Bilateral internal iliac arteries, left external iliac artery and Bilateral uterine arteries. Anesthesia: Conscious sedation with IV Fentanyl and Versed as well as local 1% lidocaine injected locally at the arteriotomy site. Conscious sedation time: Timeout: 1031 hours Case end: 1235 hours Total conscious sedation time: 2 hours and 4 minutes Additional medications: * 175 mcg IA nitroglycerin injected intermittently throughout the course of the procedure to alleviate arterial spasm. * Intra-arterial Toradol, 18 mg in the right uterine artery and 12 mg in the left uterine artery, for a total of 30 mg intra-arterial. * Intravenous Toradol, 20 mg. * Prior to the procedure the patient received: Ativan 1 mg p.o. Naproxen sodium 250 mg p.o. OxyContin 10 mg p.o. Scopolamine patch 1.5 mg transdermal applied to the mastoid process. Zofran 4 mg IV Antibiotic prophylaxis was provided by Clindamycin 900 mg IV PROCEDURE NOTE AND INTRAPROCEDURAL IMAGING FINDINGS: Immediately prior to the procedure the patient signed consent after thoroughly discussing all risks and benefits. The patient was positioned on the fluoroscopy table in the supine position and the bilateral groins were shaved, prepped and draped in standard sterile fashion. Using fluoroscopic imaging the location of the right common femoral head was marked externally with a skin marker on the patient's groin. Utilizing sonographic guidance and palpation the right common femoral artery was cannulated overlying the right femoral head with an 21-gauge needle. An ultrasound image was saved. A microwire was slowly and smoothly advanced to the aortic bifurcation under fluoroscopic imaging. No buckling of the wire was visualized to indicate dissection. Over the wire a 5-Panamanian catheter was advanced into the artery, the inner stiffener removed and the microwire was replaced with a 0.035" ValveXchangesen wire which was advanced into the aorta. Finally the 5 Panamanian catheter was exchanged for a 5 Panamanian sidearm sheath. Utilizing a 0.035" wire and 5-Panamanian C2 catheter the contralateral left common iliac artery was accessed. The wire was advanced under fluoroscopic control to the proximal left superficial femoral artery. The C2 catheter was removed and over the wire a 5 Panamanian Merit Impress catheter was advanced over the iliac bifurcation and the reverse curve was formed in the lower abdominal aorta. Utilizing the reverse curve catheter and the wire the ipsilateral right common iliac artery was selected. With the tip of the catheter in the proximal most portion of the right internal iliac artery, angiography was performed to detail the branches of the right internal iliac artery and to locate the ostium of the right uterine artery. Arteriograms in multiple oblique projections were performed to best discern the branch point of the uterine artery. Once the uterine artery was identified, a microcatheter and microwire were advanced into the parent catheter and, in conjunction with contrast angiography, the uterine artery was identified and selected with the microcatheter and wire system. Prior to embolization, contrast injection into the horizontal portion of the uterine artery demonstrated no large, obvious collateral blood flow to the ovary or a definite cervicovaginal branch descending inferiorly. Intra-arterial nitroglycerin was injected intermittently to alleviate arterial spasm. Under fluoroscopic control 1 vial Hydropearls Microspheres 600 um and 4 vials Hydropearls Microspheres 800 um were slowly injected into the right uterine artery to near complete stasis. Towards the end of embolization 18 mg of Toradol was injected intra-arterially. The microcatheter was pulled back into the more proximal descending portion of the uterine artery and contrast angiography depicted near complete stasis of the uterine artery. The microcatheter and microwire were removed. Contrast arteriography through the 5-Panamanian catheter in the right internal iliac artery demonstrated patency and brisk flow through all branches of the internal iliac artery with the exception of the right uterine artery which demonstrates near complete stasis. The 0.035" wire was reinserted into the 5-Panamanian catheter and the system was utilized to access the contralateral left internal iliac artery. With the tip of the 5 Panamanian Merit Impress catheter in the proximal most portion of the left internal iliac artery, angiography was performed to detail the branches of the left internal iliac artery and to locate the ostium of the left uterine artery. Arteriograms in multiple oblique projections were performed to best discern the branch point of the uterine artery. Once the uterine artery was identified, the microcatheter and microwire were advanced into the parent catheter and, in conjunction with contrast angiography, the uterine artery was identified and selected with the microcatheter and wire system. Prior to embolization, contrast injection into the horizontal portion of the left uterine artery demonstrated no large, obvious collateral blood flow to the ovary or a definite cervicovaginal branch descending inferiorly. Intra-arterial nitroglycerin was injected intermittently to alleviate arterial spasm. Under fluoroscopic control approximately 1 vial Embospheres 500-700 um and 1 vial of Embospheres 700-900 um were slowly injected into the left uterine artery to near complete stasis. Towards the end of embolization 15 mg of Toradol was injected intra-arterially. The microcatheter was pulled back into the more proximal descending portion of the uterine artery and contrast angiography depicted near complete stasis of the uterine artery. The microcatheter and microwire were removed. Contrast arteriography through the 5-Panamanian catheter in the left internal iliac artery demonstrated patency and brisk flow through all branches of the internal iliac artery with the exception of the left uterine artery which demonstrates near complete stasis. The 5-Panamanian catheter and 0.035" wire were utilized to access the left external iliac artery which allowed a safe removal of the 5-Panamanian Impress catheter. The wire was then removed from the sheath. The access sheath was removed and pressure was held at the common femoral arteriotomy for approximately 15 minutes. There were no signs of bleeding at the right groin access site and the site was dressed with sterile gauze and Tegaderm. The patient tolerated the procedure well and was transferred to the short stay recovery unit in stable condition for routine overnight observation and pain and nausea control. SUMMARY OF PROCEDURE, IMAGING FINDINGS AND INTERVENTIONS PERFORMED: 1. Diagnostic studies performed: * Arterial access was obtained at the right common femoral artery in the retrograde direction (i.e. towards the heart) with ultrasound guidance. A sonographic image was recorded. * Diagnostic catheter angiography (necessary to perform the appropriate interventions) was performed with the catheter tip in the bilateral common iliac arteries, left external iliac artery, bilateral internal iliac arteries and bilateral uterine arteries. * Catheter arteriography was performed of the bilateral iliac arterial system and specifically the bilateral uterine arteries. 2. Interpretation of diagnostic studies performed: * Hypertrophied uterine arteries bilaterally, slightly dominant on the right, providing arterial blood flow to the patient's greatly enlarged fibroid uterus. 3. Surgical interventions performed: * Near stasis embolization of the bilateral uterine arteries utilizing 1 vial Hydropearls Microspheres 600 um and 4 vials Hydropearls Microspheres 800 um in the right uterine artery and 1 vial Embospheres 500-700 um and 1 vial of Embospheres 700-900 um in the left uterine artery. 4. Interpretation of interventions performed: * Final arteriography demonstrated near complete stasis of the bilateral uterine arteries.. PLAN: 1. The patient will be admitted to short stay surgical unit for routine overnight observation including pain and nausea control. 2. Outpatient clinical and imaging follow-up according to the Interventional Radiology protocol.
--- NOTE | 2017-07-15 18:27 | HP ---
CC: Dr. Chery Sandoval* ADMISSION HISTORY AND PHYSICAL: DATE OF ADMISSION: 07/15/17 PRIMARY CARE PROVIDER: Dr. Chery Sandoval. HEALTHCARE PROXY: Her . CODE STATUS: Full. SOURCE OF INFORMATION: History obtained from interview of the patient, review of past medical records, discussion with Dr. Fierro. RELIABILITY: Good. CHIEF COMPLAINT: Admission status post uterine fibroid embolization. HISTORY OF PRESENT ILLNESS: This is a 51-year-old female with past medical history including perforated appendicitis, complicated by abscess, on laparoscopic exploration, who underwent an elective uterine fibroid embolization that day with Dr. Fierro secondary to leiomyoma of the uterus by the right femoral groin access without complication seen after the procedure. The patient notes her pain is currently 5/10 in her lower abdomen. She is currently receiving hydromorphone via MATLAB DEVELOPER and is utilizing the demand dosing without difficulty. She has no chest pain, shortness of breath, nausea, vomiting, lightheadedness. She has been well until approximately 2 days prior to presentation, developed sinus infection for which she was started on amoxicillin, which will be continued during the course of the hospital stay. PAST MEDICAL HISTORY: Includes anxiety, depression, iron deficiency, trigeminal neuralgia, right parotid gland tumor removal, perforated appendectomy complicated by abscess and laparotomy. MEDICATIONS: 1. Buspirone 10 mg twice daily as needed. 2. Venlafaxine 150 mg in the morning. 3. Ferrous sulfate 65 mg daily. 4. Xanax 0.5 mg twice daily as needed. 5. Cryselle-28 one tab daily. 6. Carbamazepine 200 mg twice daily. ALLERGIES: No known drug allergies. FAMILY HISTORY: Mother with CAD and CVA. Maternal grandfather with CAD and CVA. Brother with CAD. SOCIAL HISTORY: No tobacco. She is . No illicits. REVIEW OF SYSTEMS: As per HPI. Otherwise, all other systems negative. PHYSICAL EXAMINATION GENERAL: Lying flat in bed, drowsy, but interactive, no apparent distress. VITAL SIGNS: On the floor 155/77, heart rate 85, respiratory rate 16, 95% on room air, T-max 97.7. HEENT: Oropharynx is clear. Moist mucous membranes. Sclerae anicteric. Regular rate and rhythm. No murmurs, rubs, or gallops. LUNGS: Clear bilaterally. ABDOMEN: Soft. Positive bowel sounds. Tenderness in the lower abdomen. EXTREMITIES: Warm and well perfused. 1+ dorsalis pedis and 2+ posterior tibial pulses. Right groin site is clean, dry, no bruits or hematoma. NEUROLOGIC: She is alert and oriented x3. LABORATORY DATA: Reviewed. Most recent labs from this morning reviewed. ASSESSMENT AND PLAN: This is a 51-year-old female with fibroid uterus, underwent uterine fibroid embolization today with right femoral access. 1. UFE - care per Dr. Fierro including ketorolac IV, scopolamine, and hydromorphone MATLAB DEVELOPER. Regular diet. 2. Hypertension, undiagnosed, elevated during the procedure per report. We will monitor and consider starting new antihypertensive prior to discharge. 3. History of anxiety. Continue benzodiazepine p.r.n. 4. Trigeminal neuralgia. Continue carbamazepine. 5. DVT prophylaxis. SCDs. 6. Code status. Full. [id number]/[facility] #: [id number] MTDD
--- NOTE | 2017-07-15 18:45 | PN ---
Progress Note - Progress Note Date of Service: 07/15/17 SOAP: Date of Service: 07/15/17 Subjective: Sitting up in bed sipping water and eating sherbert. Currently no nausea or emesis. 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 Lopez removed, has not voided yet. Objective: Selected Entries 07/15/17 07/15/17 17:15 18:21 Temperature 97.9 F Temperature Oral Source Pulse Rate 96 Respiratory 14 Rate Blood Pressure 157/87 (mmHg) Blood Pressure 110 Mean O2 Sat by Pulse 94 Oximetry NAD, AAO x 3 Abdomen and Pelvis are soft, nondistended Suprapubic area is minimally tender to palpation Right groin arteriotomy site is soft, nontender Dressing is CDI 2+ pulses palpated at right TELEPHONIC CASE MANAGER, pop, dpa and door captain Right leg is neuromuscular intact Assessment: 51 year old woman s/p Uterine Fibroid Embolization with pain and nausea adequately controlled. Plan: 1. Standard Interventional Radiology post UFE regimen. 2. Advance diet slowly. 3. Ambulate with assistance.
[2017-07-15] MEDS: Amoxicillin PO (*) 875 MG TAB PO SCH (20:52)
[2017-07-15] MEDS: ALPRAZolam TAB* 0.5 MG PO PRN (20:56)
[2017-07-15] MEDS ORDERED: carBAMazepine TAB(*) 200 MG PO SCH (21:00)
[2017-07-16] MEDS: Ondansetron INJ* 2 MG/ML VIAL IV SCH (05:31)
[2017-07-16] MEDS: Ketorolac INJ* 15 MG/ML 1 ML VIAL IV PUSH SCH (05:31)
--- NOTE | 2017-07-16 08:44 | PN ---
Progress Note - Progress Note Date of Service: 07/16/17 SOAP: Subjective: Episode of severe pelvic pain overnight that improved with narcotic therapy and walking around the unit. No severe nausea. No emesis. + solid food intake. + void. Patient experiencing right facial pain due to trigeminal neuralgia Objective: Selected Entries 07/16/17 07/16/17 07:53 08:00 Temperature 99.0 F Temperature Temporal Artery Source Scan Pulse Rate 89 Respiratory 16 Rate Blood Pressure 159/74 (mmHg) Blood Pressure 102 Mean Vital Signs Manual BP Comment recheck O2 Sat by Pulse 98 Oximetry Minimal distress AAO x 3 Abd & Pelvis is soft, minimally tender to palpation Right groin over arteriotomy is soft, nontender Dressing is CDI 2+ pulses at RLE RLE neuromuscular intact Assessment: 51 YOF POD #1 Uterine Fibroid Embolization with pain controlled with NSAID therapy supplemented with narcotic and nausea controlled. Plan: 1. Transition IV to PO pharmacotherapy. 2. Ambulation Q 2 hours with assistance. 3. Patient takes tegretol for trigeminal neuralgia. Med due now.
[2017-07-16] MEDS ORDERED: Venlafaxine EXT RELEASE CAP* 75 MG PO SCH (09:00)
[2017-07-16] MEDS ORDERED: Docusate LIQ* 100 MG/10 ML UDC PO SCH (09:00)
[2017-07-16] MEDS: Amoxicillin PO (*) 875 MG TAB PO SCH (09:03)
[2017-07-16] MEDS: HYDROcodone/ACETAMIN 5-325 MG* 1 TAB PO PRN ×2 (09:03→15:05)
[2017-07-16] MEDS: carBAMazepine TAB(*) 200 MG PO SCH ×2 (09:03→11:35)
[2017-07-16] MEDS ORDERED: carBAMazepine TAB(*) 200 MG PO ONE (09:59)
[2017-07-16 11:35] VITALS: BP 160/76
[2017-07-16] MEDS ORDERED: Ondansetron ODT TAB* 4 MG PO SCH (12:00)
[2017-07-16] MEDS ORDERED: Ketorolac TAB * 10 MG TAB PO SCH (12:00)
--- NOTE | 2017-07-16 13:10 | PN ---
Progress Note - Progress Note Date of Service: 07/16/17 SOAP: Subjective: Pelvic pain is well controlled at about 3/10, but there have been "flare ups" throughout the morning. No nausea or emesis. Right facial pain characteristic of trigeminal neuralgia, improved with increase of her usual Tegretol. The facial pain has limited her food intake. + void. + Ambulate independently. Objective: Selected Entries 07/16/17 11:07 Temperature 99.0 F Temperature Temporal Artery Source Scan Pulse Rate 94 Respiratory 18 Rate Blood Pressure 160/76 (mmHg) Blood Pressure 94 Mean O2 Sat by Pulse 97 Oximetry NAD, AAO x 3 Suprapubic pelvis is soft, and minimally tender to palpation Right groin at arteriotomy site is soft, nontender Dressing is clean and dry 2+ pulses at RLE arteries RLE is neuromuscular intact Assessment: 51 YOF POD #1 Uterine Fibroid Arterial Embolization with UFE related pain and nausea well controlled. The patient is experiencing a flare up of the trigeminal neuralgia that she experiences chronically. Symptoms are improving with increased Tegretol therapy. Plan: 1. Discharge to home. 2. Encourage PO diet. 3. Routine Interventional Radiology follow up will include RN clinic follow up telephone calls 07/19/17 and , 07/22/17. Follow up in the clinic in 6 weeks and 6 months. 4. Outpatient Rx regimen will include: Toradol 10 mg PO Q 6 hours x 3 days, dispense #15, 1 refill AFTER 3 days of Toradol, start Naproxen 250 mg PO every 12 hours x 3 days (DO NOT COMBINE TORADOL AND NAPROXEN) [place] 5/325 1 or 2 tablets PO Q 6 hours PRN x 5 days, dispense #30 (thirty), no refills Zofran 4 mg PO Q 6 hours x 5 days, dispense #30, 1 refill Scopoloamine 1.5 mg TD patch: on the morning of Wednesday, replace current patch with new patch and wear x 3 days 5. Patient advised to purchase laxative tea (E.g. Smooth Move) and drink one cup daily x 1 week to avoid constipation.
[2017-07-16] MEDS: ALPRAZolam TAB* 0.5 MG PO PRN (13:18)
--- NOTE | 2017-07-16 23:42 | DS ---
CC: George Fierro MD; Dr. Chery Sandoval * DISCHARGE SUMMARY: DATE OF ADMISSION: 07/15/17 DATE OF DISCHARGE: 07/16/17 PRIMARY CARE PROVIDER: Dr. Chery Sandoval. ATTENDING FOR THIS ADMISSION: George Fierro MD CONSULTING PHYSICIAN: Germán Chatterjee MD MY ATTENDING FOR TODAY: Luiza Zarco DO * (DICTATED BY TAE RAMIREZ NP) HOSPITAL COURSE: This is a very pleasant 51-year-old female patient who presented with a past medical history of uterine leiomyoma. She was referred to Dr. Fierro by her laborer plumbing. The patient's past medical history is significant for perforated appendicitis with intraabdominal abscess, laparoscopic exploration, anxiety, depression, iron deficiency anemia, trigeminal neuralgia, right parotid gland tumor removal. Again, the patient presented to Dr. Fierro with a complaint of abdominal pain. The patient was failing conservative treatment and it was recommended that she undergo a UFE. The patient underwent her embolization on 07/15/17. She has had 1 overnight stay in the hospital. This morning, she is tolerating her pain well. She has lost the CERTIFIED NURSING ASSISTANT INSTRUCTOR pump. Her Lopez catheter has been removed. She is tolerating p.o. intake. Her only complaint today is that because of her trigeminal neuralgia, she is having a flare for which she takes Tegretol. She has had several doses of Tegretol here to alleviate pain. Otherwise, the patient is feeling fairly well and ready to go home. DISCHARGE DIAGNOSES: 1. Leiomyoma status post uterine fibroid embolization. 2. History of anxiety and depression. 3. History of iron deficiency anemia. 4. Trigeminal neuralgia. 5. History of perforated appendectomy. MEDICATIONS AT THE TIME OF DISCHARGE: Include: 1. Buspirone 10 mg twice daily as needed. 2. Venlafaxine 150 mg in the morning. 3. Ferrous sulfate 65 mg daily. 4. Xanax 0.5 mg twice a day as needed. 5. Cryselle-28 control 1 tablet daily. 6. Carbamazepine 200 mg twice daily. 7. Toradol 10 mg q.6 hours x3 days. 8. Naproxen 250 mg q.12 hours x3 days. 9. [place] 5/325, 1 to 2 tablets q.6 hours as needed for 5 days. 10. Zofran 4 mg 1 tablet p.o. q.6 hours x5 days. 11. Scopolamine patch 1.5 mg x3 days. PHYSICAL EXAMINATION: Vital signs on the day of discharge; temperature 99.0, blood pressure 160/76, respiratory rate 18, satting at 94% on room air with a heart rate of 94. HEENT: The patient is atraumatic, normocephalic. PERRLA with nonicteric sclerae. Neck is supple, nontender. No JVD noted. No carotid bruits auscultated. Left jaw is tender to palpation with some difficulty opening her mouth, but no overt trismus. Cardiovascular: S1, S2 are present. Rate and rhythm are regular. No murmurs, gallops, or rubs noted. Lungs are clear bilaterally to auscultation with no wheezing, rhonchi, or rales. Abdomen is soft. Mildly tender. Diffuse throughout all 4 quadrants. She has positive bowel sounds in all 4 quadrants. : She is voiding freely. Musculoskeletal: There is no clubbing, no cyanosis, no edema. She has +2 distal pulses palpable. There is no hematoma to the right groin puncture site. Dressing is clean, dry, and intact. Neurologic: She is grossly intact with no focal deficits. Psychiatric: She is cooperative and appropriate. LABORATORY DATA: WBC 11.1, RBC 4.05, hemoglobin 13.3, hematocrit 38, platelets 217,000. Sodium 135, potassium 4.1, chloride 100, CO2 is 28, creatinine 0.68, BUN 7. GFR 92.0. Bilirubin is 0.30, AST 13, ALT 12, alk phos 97. Total protein 6.9, albumin 4.1, globulin 2.8, beta quant is 0.66. INR is 0.93. DISCHARGE PLAN: The patient will be discharged to home as per Dr. Fierro's recommendation. She is cleared for discharge. DISPOSITION PLANNING: She is to follow up with the interventional radiology clinic. She will receive phone calls from the clinic on 07/19/17, 07/21, and then on , 07/22/17. She should follow up in the clinic in 6 weeks and again in 6 months. She can also see her primary care physician as needed on an outpatient basis. DIET: She can have a regular to soft diet as tolerated. It is also recommended that she purchase laxative tea smooth move daily while she is on narcotic pain management. Again, the patient was discharged in stable condition. All questions were answered. The patient stated understanding of her discharge instructions, followup and medications at the time of discharge. TAE RAMIREZ NP [id number]/[facility] #: [id number] MOUSTAPHA
== END 2017-07-16 15:29 | disposition home or self-care (01) ==
LOC: CHICATH 07:37 → SSU 13:12
PROVIDERS: ADMIT Radiology Diagnostic Radiology; ATTEND Internal Medicine
PROC: 04LF3ZU Occlusion of Left Uterine Artery, Percutaneous Approach (ICD-10-PCS; principal; 2017-07-15 09:00)
DX: D25.9 Leiomyoma of uterus, unspecified (principal); F41.8 Other specified anxiety disorders; Z86.2 Personal history of diseases of the blood and blood-forming organs and certain disorders involving the immune mechanism; G50.0 Trigeminal neuralgia; Z90.89 Acquired absence of other organs; N93.9 Abnormal uterine and vaginal bleeding, unspecified
CPT/HCPCS: 36415; 37243; 75736; 76937; 80053; 84702; 85025; 85610; 85730; 96374; 99156; 99157; A9270-GY; C1884; C1887; G0378; J1170; J1644; J1885; J2250; J2310; J2405; J3010

== ENCOUNTER 2017-09-16 06:46 | Day surgery (SDC) | payer BC ==
--- NOTE | 2017-09-10 07:20 | HP ---
CC: Dr. Chery Sandoval; Dr. Patricia Villavicencio; Dr. Mj Gurrola; Dr. Selvin Salvador * ADMISSION HISTORY AND PHYSICAL: DATE OF ADMISSION: 09/16/17 - [facility] ATTENDING SURGEON: Dr. Selvin Betancourt.* (DICTATED BY ANGELICA MARQUEZ) CHIEF COMPLAINT: Right breast cancer. HISTORY OF PRESENT ILLNESS: This is a 51-year-old female, who underwent routine screening mammography on 08/05/17 at [facility]. I do not have that study for immediate review, but apparently it showed a suspicious lesion at the 12 o'clock position of the right breast with subsequent ultrasound on 11/20 indicating a size of 1.6 x 1.2 x 1.4 cm correlating with the mammographic lesion and felt to be suspicious. The patient had not noticed any change in her breast (she does not do a regular self exam). She specifically denied noting any changes in the skin, lumps or bumps or nipple discharge, bloody or otherwise. She underwent ultrasound guided core biopsy at [facility] on 08/13/17 this showing invasive ductal carcinoma, which was ER and AR positive and HER2/cesar negative. She met with Dr. Patricia Villavicencio. Recommendation was made for genetic testing based on family history of pancreatic cancer in her mother and maternal grandmother. There is also a question of colorectal cancer in her father, though that is uncertain. There is no specific family history of breast or ovarian cancer. The genetic testing including BRCA was apparently negative. She had also met with Dr. Salvador anticipating possible bilateral mastectomy with reconstruction, though that is no longer the plan. She met with Dr. Betancourt on 08/24/17. He had reviewed with her the surgical options. She understands the indications, risks, benefits, and alternatives and would like to proceed as scheduled with wide excision of right breast cancer (after needle localization) with sentinel lymph node biopsy. PAST MEDICAL HISTORY: 1. Anxiety and depression. 2. Trigeminal neuralgia. 3. History of iron deficiency anemia secondary to premenopausal menorrhagia ( status post uterine fibroid embolization by Dr. Fierro, on 07/15/17. She has not had any bleeding since and has also since discontinued the hormonal supplementation that she was using to help regulate her periods). PAST SURGICAL HISTORY: Her previous surgeries include: 1. Recent uterine fibroid embolization as noted above. 2. Laparoscopic appendectomy with drainage of abscess for perforated appendicitis in February of 2017. 3. Excision of a benign right parotid tumor. 4. [place] teeth extraction. She does note exacerbation of her trigeminal neuralgia after the most recent embolization procedure. No other problems reported with anesthesia from other procedures. CURRENT MEDICATIONS: 1. Buspirone 10 mg q.p.m. 2. Venlafaxine 150 mg q.a.m. 3. Xanax 0.5 mg b.i.d. 4. Carbamazepine 200 mg t.i.d. and at h.s. 5. Vitamin D 2000 International Units once daily. DRUG ALLERGIES: None known. FAMILY HISTORY: As noted above. No known family history of anesthesia problems , bleeding or clotting disorder. SOCIAL HISTORY: The patient is . 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 She denies use of tobacco, alcohol or other recreational drugs. REVIEW OF SYSTEMS: General: She admits to having increased fatigue and wonders if it is related to the cancer itself. I reassured her that it was more likely the effect of the various recent procedures and testing that would lead to some generalized constitutional symptoms. No other recent acute illnesses, status post recent uterine embolization without complication. Eyes: No recent changes. Ears, Nose, and Throat: No problems reported. She does have a couple of permanent caps. Nodes: She has not noted any swelling in her neck or axillary areas. Cardiovascular: No chest pain or palpitations. No history of heart murmur. She apparently did have some elevated blood pressures during her most recent surgical procedure. She is not currently taking any anti -hypertension agents. Respiratory: No history of asthma, chronic cough or shortness of breath. GI: No problems reported. She has, as yet, not undergone screening colonoscopy, but understands that it is a recommended test at age 52. Specifically, she denies changes in her stools or bright red blood per rectum. : No problems reported. INSURANCE ADMINISTRATIVE ASSISTANT: She is up- to-date for pelvic exam and Pap smear, both reportedly normal within the past year and status post recent uterine embolization with resultant cessation of bleeding. She still has some mild right-sided pelvic tenderness. Endocrine: No diabetes or thyroid dysfunction. Neuro/Psych: History of anxiety, depression. History of trigeminal neuralgia with recent exacerbation and adjustment in her carbamazepine dosing. PHYSICAL EXAMINATION GENERAL: Well-nourished, obese female, in no acute distress. VITAL SIGNS: Height 5 feet, weight 185 pounds, BMI of 36. Temperature 98.2, blood pressure 148/80, pulse 100, respiration 16. HEENT: Pupils equal, and round, reactive. EOMs intact. Conjunctivae pink. Oropharynx: Mucous membranes moist. Teeth in good repair. No intraoral lesions. NECK: No lymphadenopathy in the cervical or supraclavicular areas. No axillary lymphadenopathy by Dr. Betancourt's exam. No palpable thyromegaly or other neck masses. LUNGS: Clear to auscultation. No rales or wheezes. HEART: Regular rate and rhythm. No murmur noted. BREASTS: Per Dr. Betancourt's recent exam, there is small amount of induration and/ or small mass palpable in the superior aspect of the right breast and without any other discrete masses in either the right or left breast. ABDOMEN: Soft with mild tenderness in the right suprapubic area that patient states has been present since her uterine embolization with gradual improvement. The remainder of the abdomen is without palpable tenderness, masses or organomegaly. BACK: No spinous process or CVA tenderness. GENITALIA: Not done. RECTAL: Not done. EXTREMITIES: No edema. NEUROLOGICAL: Grossly intact. SKIN: Warm and dry. No suspicious rashes or lesions noted. IMPRESSION: Right breast cancer. PLAN: Wide-excision right breast cancer (after needle localization); sentinel lymph node biopsy. ANGELICA MARQUEZ [id number]/[facility] #: [id number] [facility]AD[facility] CAMPUSLizzie
[~2017-09-16 06:46] MED LIST: Buffered Lidocaine 0.9% SYRIN* 5 ML/SYR SYRINGE INTRADERM ONE
[2017-09-16] MEDS ORDERED: ceFAZolin 2 GM PREMIX (*) 2 GM/50 ML BAG IVPB ONE (07:00)
[2017-09-16] MEDS ORDERED: Lidocaine 2.5%/Prilocain 2.5%* 5 GM TUBE ONE (07:17)
--- NOTE | 2017-09-16 09:49 | RAD ---
INDICATION: Right breast carcinoma-sentinel node scan COMPARISON: Mammographic localization same date TECHNIQUE/FINDINGS: Informed consent was obtained. A routine timeout protocol was utilized. The right breast was prepped in usual fashion and a total of 0.317 mCi of technetium 99m sulfur colloid was injected in the periareolar region in 4 divided doses. Within 15 minutes the sentinel node was visualized and marked on the in surface. The patient tolerated the procedure well. There are no procedure, indications. Images were sent to the surgical holding area. IMPRESSION: SUCCESSFUL SENTINEL NODE SCAN.
[2017-09-16] MEDS ORDERED: fentaNYL* 50 MCG/ML 2 ML VIAL (100 MCG VIAL) ONE ×2 (11:10→13:16)
[2017-09-16] MEDS ORDERED: Midazolam* 1 MG/ML 2 ML VIAL (2 MG) ONE ×2 (11:10→12:04)
[2017-09-16] MEDS ORDERED: Bupivacaine 0.5% SDV PF* 30ML VIAL ONE (11:39)
[2017-09-16] MEDS ORDERED: Lidocaine 1% MPF wEPI 200,000* 30 ML SDV ONE (11:39)
[2017-09-16] MEDS ORDERED: Famotidine IV* 10 MG/ML 2 ML (20 mg) ONE (12:23)
[2017-09-16] MEDS ORDERED: Dexamethasone IV* 4 MG/ML 1 ML (4 MG) ONE (12:23)
[2017-09-16] MEDS ORDERED: Propofol* 10 MG/ML 20 ML BTL IV PUSH ONE (12:23)
[2017-09-16] MEDS ORDERED: Succinylcholine* 20 MG/ML 10 ML VIAL ONE (12:23)
[2017-09-16] MEDS ORDERED: DiMENhydriNATE IV* 50 MG/ML VIAL ONE (12:23)
[2017-09-16] MEDS ORDERED: Ketorolac INJ* 30 MG/ML 1 ML VIAL ONE (12:23)
--- NOTE | 2017-09-16 13:19 | RAD ---
INDICATION: Right breast carcinoma COMPARISON: Mammogram August 13, 2017 TECHNIQUE/FINDINGS: Informed consent was obtained. A routine timeout protocol was utilized. The right breast was prepped in usual fashion and utilizing a cephalad approach the microclip in the central right breast was localized with a Deshpande 7.5 cm wire. The wire was placed immediately adjacent to the lesion approximately 8 mm anterior to the clip. The patient tolerated the procedure well. The specimen radiograph is pending. A sentinel node scan is to merely follow this study. IMPRESSION: SUCCESSFUL WIRE NEEDLE LOCALIZATION There are 2 specimens radiographs. The mass, clip, and wire are in the first specimen. A second specimen shows nodular parenchyma with several calcifications.
[2017-09-16] MEDS ORDERED: HYDROcodone/ACETAMIN 5-325 MG* 1 TAB PO PRN ×2 (14:12)
[2017-09-16] MEDS ORDERED: Levalbuterol 0.63MG/3ML NEB* UNIT OF USE INH PRN (14:12)
[2017-09-16] MEDS ORDERED: Ondansetron ODT TAB* 4 MG PO PRN (14:12)
[2017-09-16] MEDS ORDERED: Naloxone* 0.4 MG/ML 1 ML VIAL IV PRN (14:12)
[2017-09-16] MEDS ORDERED: fentaNYL* 50 MCG/ML 2 ML VIAL (100 MCG VIAL) IV PRN (14:12)
[2017-09-16] MEDS ORDERED: PROCHLORPERAZINE INJ 5 MG/ML 2 ML VIAL IV PRN (14:12)
[2017-09-16] MEDS ORDERED: Nalbuphine* 20 MG/ML 1 ML VIAL IV PRN (14:12)
[2017-09-16] MEDS ORDERED: Ondansetron INJ* 2 MG/ML VIAL IV PRN (14:12)
[2017-09-16] MEDS ORDERED: Acetaminophen TAB* 325 MG PO PRN (14:12)
[2017-09-16 15:50] VITALS: BP 145/81
--- NOTE | 2017-09-16 21:26 | OP ---
CC: Dr. Abiola Sandoval; Patricia Villavicencio MD; Mj Gurrola MD * DATE OF OPERATION: 09/16/17 - [facility] DATE OF : 69 SURGEON: Selvin Betancourt MD CHIROPRACTIC PRACTICE MANAGER: Catrachita Mc NP ANESTHESIOLOGIST: Daisy Corey MD ANESTHESIA: General anesthetic, local infiltration. PRE-OP DIAGNOSIS: Carcinoma of the right breast. POST-OP DIAGNOSIS: Carcinoma of the right breast. OPERATIVE PROCEDURE: Needle localizing wide local excision of the right breast cancer with sentinel lymph node biopsy. DESCRIPTION OF PROCEDURE: The patient was supine on the operative table. After adequate general anesthetic, compression stockings, Marquis Hugger warmer, and intravenous antibiotics, the right breast and axillary region were prepped with antiseptic, draped in a sterile fashion. Local infiltrative anesthesia was administered and approximately a 5-cm incision was created inferior to the guidewire and somewhat lateral to it. The guidewire was used to remove a piece of breast tissue approximately 4 x 4 x 5 cm in size. This was marked with usual short, medium and long sutures and sent fresh to Radiology. At the deep inferior margin of this was an area of nodularity that was a little bit suspicious looking, so an additional piece of tissue was taken from this area. This was marked with a suture showing true margin. This was labeled additional deep and inferior tissue suture to true margin. These were both sent fresh to Radiology and specimen radiograph confirmed removal of the appropriate lesion. The area was scanned using the probe and it was felt amenable to retrieving the sentinel nodes via the breast incision and therefore dissection was carried down into the axillary july basin and two sentinel nodes identified. The first one labeled sentinel node # 1 had a count of 3600. The second one, which was scant 0.5 cm in size, had a count of 8200. These were both sent in formalin for pathologic evaluation. The patient's count was down very nicely after removal of these nodes. Hemostasis was obtained using cautery or suture ligature where appropriate. The area was irrigated with saline solution. Free fluid was suctioned out. Local anesthetic was administered. Closure was accomplished using 3-0 and 5-0 Vicryl followed by Steri-Strips. She tolerated the procedure well, was awakened and brought to Recovery in good condition. There were no complications. No drains. Pathologic specimens as above. Sponge and instrument counts correct. Estimated blood loss 100 mL. [id number]/[facility] #: [id number] [facility] [place]
== END 2017-09-16 16:46 | disposition home or self-care (01) ==
LOC: OR 06:46
PROVIDERS: ATTEND Surgery
DX: C50.811 Malignant neoplasm of overlapping sites of right female breast (principal); G47.33 Obstructive sleep apnea (adult) (pediatric); Z68.36 Body mass index [BMI] 36.0-36.9, adult; F41.8 Other specified anxiety disorders; G50.0 Trigeminal neuralgia
CPT/HCPCS: 78195; 81025; 88307; 88342; A9270-GY; A9541; J0330; J0690; J1100; J1240; J1885; J2001; J2250; J2704; J3010

== ENCOUNTER → 2018-03-31 09:49 | Day surgery (SDC) | payer BC ==
[~2018-03-31 09:49] MED LIST changes: +Bupivacaine 0.5% W/EPI SDV* 30 ML VIAL ONE; +DiMENhydriNATE IV* 50 MG/ML VIAL IV PUSH PRN; +DiMENhydriNATE IV* 50 MG/ML VIAL ONE; +EPHEDrine (Pressors)* 50 MG/ML VIAL ONE; +Famotidine IV* 10 MG/ML 2 ML (20 mg) IV ONE; +Famotidine IV* 10 MG/ML 2 ML (20 mg) ONE; +HYDROmorphone INJ1* 1 MG/ML SYRINGE ONE; +Ketorolac INJ* 30 MG/ML 1 ML VIAL ONE; +Lactated Ringers 1000 ML Bag* 1,000 ML IV SCH; +Lidocaine 1% INJ* 10 MG/ML 30 ML SDV ONE; +Lidocaine 2% PF * 5 ML VIAL ONE; +Midazolam* 1 MG/ML 2 ML VIAL (2 MG) ONE; +Naloxone* 0.4 MG/ML 1 ML VIAL IV PRN; +Ondansetron INJ* 2 MG/ML VIAL ONE; +Propofol* 10 MG/ML 20 ML BTL ONE; +Rocuronium* 10 MG/ML VIAL ONE; +Scopolamine 1.5 mg* PATCH ONE; +Scopolamine 1.5 mg* PATCH TRANSDERM ONE; +Sugammadex * 200 MG/2 ML VIAL IV PUSH ONE; +ceFAZolin 2 GM PREMIX in ORs 2 GM/50 ML BAG IVPB ONE; +fentaNYL* 50 MCG/ML 2 ML VIAL (100 MCG VIAL) IV PRN; +fentaNYL* 50 MCG/ML 2 ML VIAL (100 MCG VIAL) ONE
[2018-03-31] MEDS: HYDROmorphone INJ1* 1 MG/ML SYRINGE IV PRN ×2 (13:10→13:27)
[2018-03-31 14:42] VITALS: BP 119/68
--- NOTE | 2018-03-31 22:05 | OP ---
CC: Dr. Selvin Betancourt; Dr. Chery Sandoval OPERATIVE REPORT: DATE OF OPERATION: 03/31/18 DATE OF : 69 SURGEON: Selvin Betancourt MD INSIDE UPHOLSTERER: Catrachita Mc NP ANESTHESIOLOGIST: Dr. Gilmore ANESTHESIA: General anesthetic, local infiltration. PRE-OP DIAGNOSIS: Cholecystitis. POST-OP DIAGNOSIS: Cholecystitis. OPERATIVE PROCEDURE: Laparoscopic cholecystectomy. DESCRIPTION OF PROCEDURE: The patient was supine on the operative table. After adequate general ane sthetic, compression stockings, Marquis Hugger warmer, and intravenous antibiotics, the abdomen was prep ped with antiseptic, draped in a sterile fashion. Local infiltrative anesthesia was administered and small umbilical incision was created. Blunt port cannula was placed. Insufflation was carried out with carbon dioxide. Additional cannulae, 12-mm subxiphoid and 5-mm right upper quadrant and right a nterior axillary line were placed through small stab wounds under direct vision. The abdomen was exa mined and there were large fibroids of the uterus. Pictures were taken. This was consistent with he r previous history. The ovaries appeared relatively normal. The gallbladder was somewhat chronicall y inflamed and irritated. It was tented upward and areolar tissue was take down of the cystic duct a nd cystic artery which were readily identified and divided. The common duct was also identified and well out of harms way. There was a posterior branch to the cystic artery as well that was clipped an d divided. The gallbladder was taken off the liver bed using electrocautery. Hemostasis was obtained using electrocautery. There was little bile spillage. No stones were identified. The gallbladder was placed in a retrieval bag and brought out through the subxiphoid port without difficulty. The op erative field was well irrigated with warm saline solution. Free fluid was suctioned out. Hemostasi s was confirmed. Cannulae were removed. Pneumoperitoneum allowed to escape. The umbilical fascia w as closed with 0 Vicryl and skin with 5-0 Vicryl followed by Steri-Strips. She tolerated the procedu re well, was awakened and brought to Recovery in good condition. No complications. No drains. Path ologic specimen gallbladder. Sponge and instrument counts correct. Estimated blood loss less than 1 00 mL. [id number]/[facility] #: [id number]
== END | disposition home or self-care (01) ==
LOC: OR 09:49
PROVIDERS: ATTEND Surgery
DX: K80.12 Calculus of gallbladder with acute and chronic cholecystitis without obstruction (principal); K21.9 Gastro-esophageal reflux disease without esophagitis; G47.33 Obstructive sleep apnea (adult) (pediatric); F41.8 Other specified anxiety disorders; Z68.36 Body mass index [BMI] 36.0-36.9, adult
CPT/HCPCS: 81025; 88304; A9270-GY; J0690; J1170; J1240; J1885; J2250; J2405; J2704; J3010